=== PATIENT | female | born 1950 | race Caucasian/White ===

== ENCOUNTER 2017-07-11 18:25 | Inpatient (IN) ==
[2017-07-11 18:31] VITALS: BMI 31.1
--- OUTSIDE RECORDS SUMMARY | 2017-07-11 18:32 | External Medical Summary | CCD ---
:1950 Author Name JACKIE RANGEL Address [address] [place] [phone] Care Team Providers Name Role Phone NGUYỄN FERRELL Attending Physician Unavailable Vital Signs Unknown or Not Available. Allergies Allergy Code Allergy Type Reaction Status No Known Drug 0 No known drug Active Allergies allergies Procedures Unknown or Not Available. History of Immunizations Unknown or Not Available. Problems Unknown or Not Available. Results HGB A1C - Collect Date/Time: 11/22/2014 11:50 Test Name Code Test Result Test Units Test Ref Range HGB A1C 7.4 % L=4.5 H=6.2 eAG 166 mg/dL THYROXINE (T4) FREE - Collect Date/Time: 11/22/2014 11:50 Test Name Code Test Result Test Units Test Ref Range FT4 1.22 ng/dL L=0.76 H=1.46 TSH - Collect Date/Time: 11/22/2014 11:50 Test Name Code Test Result Test Units Test Ref Range TSH 5.22 uIU/mL L=0.36 H=3.74 MICROALBUMIN/CREATININE RATIO - Collect Date/Time: 11/22/2014 16:55 Test Name Code Test Result Test Units Test Ref Range MICROALBUMIN 1.7 mg/dL L=0.1 H=2.0 CREAT, URINE 195.2 mg/dL MICROALB/CREAT 8.7 ug/mg L=0.0 H=29.9 Active Medications Unknown or Not Available. Medications Administered During Visit Unknown or Not Available. Encounters Encounter Diagnosis Diagnosis Code Start Date DIABETES W O COMP TYPE 2 72111 11/22/2014 UNSPECIFIE Social History Smoking Status Code Start Date End Date Never smoker [id number] Patient Decision Aids Unknown or Not Available. Discharge Instructions You were admitted to [facility] on 08/2015 with a principal diagnosis of DIABETES W O COMP TYPE 2 UNSPECIFIE. You were discharged from [facility] on 11/22/2014. Should you have any questions prior to discharge, please contact a member of your healthcare team. If you have left the hospital and have any questions, please contact your primary care physician. Chief Complaint and Reason For Visit Unknown or Not Available. Function Status Unknown or Not Available. Plan of Care Unknown or Not Available. Referral/Transition of Care Unknown or Not Available.
--- OUTSIDE RECORDS SUMMARY | 2017-07-11 18:32 | External Medical Summary | Continuity of Care Document ---
:[address] [facility] Allergies Medications Problems Date Dx Attending Type Code Diagnosis Diagnosed By Coded 03/07/2013 Irvin Drake MD 250.40 DIAB W RENAL MANIFEST, TYPE II OR UNSPEC TYPE, NOT 03/07/2013 Irvin Drake MD 272.4 HYPERLIPIDEMIA NEC/NOS 03/07/2013 Irvin Drake MD 403.90 HYPTNSV CHR KID DIS, UNSPEC, W CHR KD STAGE I-IV O 03/07/2013 Irvin Drake MD 414.00 CORON ATHEROSCLER NOS TYPE VESSEL, SNOQUALMIE OR GRAFT 03/07/2013 Irvin Drake MD 427.89 CARDIAC DYSRHYTHMIAS NEC 03/07/2013 Irvin Drake MD 458.9 HYPOTENSION NOS 03/07/2013 Irvin Drake MD 584.9 ACUTE RENAL FAILURE, UNSPECIFIED 03/07/2013 Irvin Drake MD 585.9 CHRONIC KIDNEY DISEASE, UNSPECIFIED 03/07/2013 Irvin Drkae MD 780.4 DIZZINESS AND GIDDINESS 03/07/2013 Irvin Drake MD V45.81 AORTOCORONARY BYPASS Procedures Encounters ACCT No. Visit Discharge Status Pt. Type Provider Facility Loc./Unit Complaint Date/Time [id number] 03/07/2013 03/09/2013 DIS Inpatient Kishore Drake [id number] 21:00:00 14:50:00 [facility] [id number] 01/15/2016 ACT Unknown [id number] 11:10:00 [id number] 12/12/2014 ACT Unknown [id number] 10:33:00 [id number] 04/02/2014 ACT Unknown [id number] 09:10:00
--- OUTSIDE RECORDS SUMMARY | 2017-07-11 18:32 | External Medical Summary | CCD ---
:1950 Author Name DARIELA SEYMOUR Address [address] [place] [phone] Care Team Providers Name Role Phone YAN RETANA Attending Physician Unavailable Vital Signs Unknown or Not Available. Allergies Allergy Code Allergy Type Reaction Status No Known Drug 0 No known drug Active Allergies allergies Procedures Unknown or Not Available. History of Immunizations Unknown or Not Available. Problems Unknown or Not Available. Results COMP METABOLIC - Collect Date/Time: 12/23/2015 08:34 Test Name Code Test Result Test Units Test Ref Range GLUCOSE 114 mg/dL L=70 H=110 BUN 26 mg/dL L=7 H=18 CREATININE 0.97 mg/dL L=0.60 H=1.30 AGE 65 YEARS GFR 57.5 SODIUM 143 mmol/L L=136 H=145 POTASSIUM 3.9 mmol/L L=3.5 H=5.1 CHLORIDE 104 mmol/L L=98 H=107 CO2 32 mmol/L L=21 H=32 CALCIUM 9.2 mg/dL L=8.5 H=10.1 AST 20 U/L L=15 H=37 ALT 25 U/L L=12 H=78 ALKALINE PHOS 80 U/L L=50 H=136 TOTAL PROTEIN 7.5 g/dL L=6.4 H=8.2 ALBUMIN 3.8 g/dL L=3.4 H=5.0 TOTAL BILI 0.60 mg/dL L=0.00 H=1.00 HGB A1C - Collect Date/Time: 12/23/2015 08:34 Test Name Code Test Result Test Units Test Ref Range HGB A1C 7.4 % L=4.5 H=6.2 eAG 166 mg/dL LIPID PANEL - Collect Date/Time: 12/23/2015 08:34 Test Name Code Test Result Test Units Test Ref Range CHOLESTEROL 202 mg/dL L=0 H=200 TRIGLYCERIDES 197 mg/dL L=30 H=150 HDL 43 mg/dL L=50 H=60 LDL, CALC 120 mg/dL L=0 H=100 VLDL 39 mg/dL L=0 H=40 CHOL/HDL RISK 4.7 RATIO L=0.0 H=4.4 PT FASTING: YES N/A THYROXINE (T4) FREE - Collect Date/Time: 12/23/2015 08:34 Test Name Code Test Result Test Units Test Ref Range FT4 1.52 ng/dL L=0.76 H=1.46 TSH - Collect Date/Time: 12/23/2015 08:34 Test Name Code Test Result Test Units Test Ref Range TSH 0.51 uIU/mL L=0.36 H=3.74 MICROALBUMIN/CREATININE RATIO - Collect Date/Time: 12/24/2015 11:00 Test Name Code Test Result Test Units Test Ref Range MICROALBUMIN 0.7 mg/dL L=0.1 H=2.0 CREAT, URINE 34.5 mg/dL MICROALB/CREAT 20.3 ug/mg L=0.0 H=29.9 Active Medications Unknown or Not Available. Medications Administered During Visit Unknown or Not Available. Encounters Encounter Diagnosis Diagnosis Code Start Date Type 2 diabetes mellitus without E119 12/23/2015 complications Social History Smoking Status Code Start Date End Date Never smoker [id number] Patient Decision Aids Unknown or Not Available. Discharge Instructions You were admitted to [facility] on 12/23/2015 08:20 with a principal diagnosis of Type 2 diabetes mellitus without complications You had the following tests done: COMP METABOLIC HGB A1C LIPID PANEL MICROALBUMIN/CREATININE RATIO THYROXINE (T4) FREE TSH You were discharged from [facility] on 12/23/2015 08:20 Should you have any questions prior to discharge, please contact a member of your healthcare team. If you have left the hospital and have any questions, please contact your primary care physician. Chief Complaint and Reason For Visit Chief Complaint Date of Onset LAB Function Status Unknown or Not Available. Plan of Care Unknown or Not Available. Referral/Transition of Care Unknown or Not Available.
--- NOTE | 2017-07-11 19:06 | History & Physical Report ---
History of Present Illness Date: 07/11/17 Chief complaint: hip fracture HPI: Yodit is a 67-year-old woman with CAD, DM who fell trying to catch a puppy in a parking lot. She could not get up, but with help she was driven home. She sought medical attention in [place]. Dr. Mirza notified Dr. Carmichael of the hip fracture, and then contacted me to arrange transfer to [facility]. Patient says pain is controlled. Nurse reports patient having some nausea on arrival Review of Systems All systems PM: 10-point ROS was reviewed, no additional remarkable complaints except PFSH Patient Stated Medical History Cerebrovascular Accident Yes Paralysis No Seizures No Syncope No Cataracts Yes Coronary Artery Disease Yes Hypertension Yes Other Cardiology Yes: CABGx4 2009 Asthma No Bronchitis No Chronic Obstructive Pulmonary No Disease (COPD) Pneumonia No Pulmonary Edema No Pulmonary Embolism No Sleep Apnea No Tuberculosis No Other Respiratory No Diabetes Mellitus Type 1 Yes Cirrhosis No Gastroesophageal Reflux No Disease Gastrointestinal Bleeding No Hepatitis No Hiatal Hernia No Obstructive Bowel No Ulcer No Other GI No Osteoarthritis No Other Musculoskeletal No Shingles Yes Anesthesia Reactions Yes Depression No Clinic Medical History (Last Reviewed 06/10/17 @ 08:29 by GEORGINA Loving) Cataract (Acute Medical) Diabetes (Acute Medical) High blood pressure (Acute Medical) High cholesterol (Acute Medical) Surgical History: C SECTIONS X 3, GALLBLADDER 2009 , QUAD BYPASS HEART SURGERY 2009,. LT SHOULDER ARTHROSCOPIC DEBRIDEMENT SUPERIOR LABRUM & LONG HEAD BICEPS TENDON STUMP, DEBRIDEMENT SUBSCAPULARIS, SUBACROMIAL BURSECTOMY WITH SAD 05-04-17 Family History: Family History (Last Reviewed 06/10/17 @ 08:29 by GEORGINA Loving) Mother Dementia High blood pressure High cholesterol Brother High cholesterol High blood pressure Lung cancer Father Heart attack Maternal Grandmother Diabetes - Social History Smoking status: Never smoker Medications Home Medications Medication Instructions Recorded Confirmed Type Crestor (rosuvastatin) 40 mg tablet 40 mg PO DAILY 30 Days tab 03/25/17 History Levemir FlexTouch (insulin 35 units SQ DAILY 72 Days #45 03/25/17 04/14/17 History detemir) 100 unit/mL (3 mL) PEN Plavix (clopidogrel) 75 mg tablet 75 mg PO DAILY 30 Days tab 03/25/17 04/13/17 History hydrochlorothiazide 25 mg tablet 25 mg PO DAILY 90 Days tab 03/25/17 04/14/17 History levothyroxine 150 mcg tablet 150 mcg PO DAILY 30 Days tab 03/25/17 04/14/17 History lisinopril 10 mg tablet 10 mg PO DAILY 90 Days tab 03/25/17 04/14/17 History Lasix (Furosemide) 20 mg tablet 20 mg PO QAM 04/08/17 04/14/17 History Norvasc (amlodipine) 5 mg tablet 5 mg PO DAILY 30 Days tab 04/08/17 04/14/17 History aspirin 81 mg tablet,delayed 324 mg PO Q6H 04/08/17 04/13/17 History release Insulin Lispro [Humalog] 4 unit SQ AM 04/13/17 04/14/17 History Insulin Lispro [Humalog] 4 units SQ NOON 04/13/17 04/14/17 History Insulin Lispro [Humalog] 8 unit SQ PM 04/13/17 04/14/17 History Metoprolol Succinate 25 mg PO DAILY 04/13/17 04/14/17 History Allergies Allergy/AdvReac Type Severity Reaction Status Date / Time No Known Allergies Allergy Verified 07/11/17 18:46 Exam Vital Signs: Temperature 97.4 F 07/11/17 18:44 Pulse Rate 71 07/11/17 18:44 Respiratory Rate 18 07/11/17 18:44 Blood Pressure 147/61 H 07/11/17 18:44 Pulse Oximetry 99 07/11/17 18:44 Height/Weight/BMI: Height 5 ft 7 in Weight 90.1 kg Body Mass Index 31.1 - Constitutional Present: well nourished, well developed - Routine HEENT Exam Eye: Present: EOMI ENT: Present: mucous membranes moist, dentition normal - Routine Neck Exam Present: supple. Absent: JVD - Routine Respiratory Exam Present: CTA bilaterally. Absent: wheezes - Routine Cardiovascular Exam Present: RRR. Absent: murmur - Routine Abdominal Exam Present: soft, normoactive bowel sounds, non distended. Absent: tenderness - Routine Extremities Exam Present: normal capillary refill - Routine Skin Exam Present: dry, warm - Routine Neurological Exam Present: alert, oriented X3, CN II-XII intact - Routine Psychiatric Exam Present: normal affect Assessment and Plan (1) Hip fracture, intertrochanteric Current visit: Yes Status: Acute Assessment and Plan: left hip fracture CAD s/p CABG DM2 HTN hypothyroid Plan Admit as inpatient. Dr. Carmichael has been consulted. Will hold Plavix. Lovenox for DVT prophylaxis. Dilaudid and Virgil available for pain. Patient walks 45 minutes every other day. She denies any chest pain or cardiac issues since CABG in 2009. Obtain baseline ECG. Will continue her home antihypertensives - metoprolol and amlodipine. Will continue her insulin regimen and monitor accuchecks. Will start diabetic diet. Resume levothyroxine. Zofran will be available for any nausea. Hospital Course Summary Disclaimer: The visit summary below is not to be considered part of the above Progress Note. Hospital Course: 07/11/17 19:20 left hip fracture CAD s/p CABG DM2 HTN hypothyroid Plan Admit as inpatient. Dr. Carmichael has been consulted. Will hold Plavix. Lovenox for DVT prophylaxis. Dilaudid and Virgil available for pain. Patient walks 45 minutes every other day. She denies any chest pain or cardiac issues since CABG in 2009. Obtain baseline ECG. Will continue her home antihypertensives - metoprolol and amlodipine. Will continue her insulin regimen and monitor accuchecks. Will start diabetic diet. Resume levothyroxine. Zofran will be available for any nausea
[2017-07-11] MEDS ORDERED: GLUCOSE ORAL GEL 40% 37.5gm PO PRN (20:19)
[2017-07-11] MEDS ORDERED: DEXTROSE 50% SYRINGE 50ml (1 AMP) IVP PRN (20:19)
[2017-07-11] MEDS ORDERED: LEVOTHYROXINE 150 MCG TABLET PO SCH (20:30)
[2017-07-11] MEDS: HYDROMORPHONE 2 MG/ML INJECTION IVP PRN (20:37)
[2017-07-11] MEDS: METOCLOPRAMIDE 10mg/2ml INJECTION IVP PRN (20:38)
[2017-07-11] MEDS: ENOXAPARIN 30 MG/0.3 ML INJECTION SQ SCH (21:21)
[2017-07-11] MEDS: INSULIN ASPART 100unit/ml INJECTION SQ PRN (22:32)
[2017-07-12] MEDS: HYDROCODONE/APAP 5mg/325mg TABLET PO PRN (00:51)
[2017-07-12] MEDS: HYDROMORPHONE 2 MG/ML INJECTION IVP PRN ×3 (06:13→18:07)
[2017-07-12] MEDS: ONDANSETRON 4 MG/2 ML INJECTION IVP PRN ×2 (06:16→13:38)
[2017-07-12] MEDS: INSULIN ASPART 100unit/ml INJECTION SQ PRN (06:32)
[2017-07-12] MEDS ORDERED: LEVOTHYROXINE 150 MCG TABLET PO SCH (09:00)
[2017-07-12] MEDS ORDERED: INSULIN DETEMIR 100unit/ml INJECTION SQ SCH (09:00)
--- NOTE | 2017-07-12 09:20 | Progress Note ---
- Date 07/12/17 Subjective: Patient says her pain is mostly controlled even after getting an x-ray. c/o nausea more than pain when she moves. Not much appetite. Objective Vital signs: Temperature 97.2 F 07/12/17 08:24 Pulse Rate 72 07/12/17 08:24 Respiratory Rate 18 07/12/17 08:24 Blood Pressure 125/53 07/12/17 08:24 Pulse Oximetry 99 07/12/17 08:24 Height/Weight/BMI: Height 5 ft 7 in Weight 90.3 kg Body Mass Index 31.1 - Constitutional Present: well nourished, well developed - Routine HEENT Exam Eye: Present: EOMI ENT: Present: mucous membranes moist, dentition normal - Routine Respiratory Exam Present: CTA bilaterally. Absent: wheezes - Routine Cardiovascular Exam Present: RRR. Absent: murmur - Routine Abdominal Exam Present: soft, normoactive bowel sounds, non distended. Absent: tenderness - Routine Extremities Exam Present: normal capillary refill. Absent: edema - Routine Skin Exam Present: dry, warm - Routine Neurological Exam Present: alert, oriented X3, CN II-XII intact - Routine Psychiatric Exam Present: normal affect Results - Labs CBC & Chem 7: 07/12/17 04:30 07/12/17 04:30 Microbiology Results: Microbiology 07/11/17 21:24 Urine, Cath Mccall Urine Culture - Preliminary Culture Initiated - Results Pending Assessment and Plan (1) Hip fracture, intertrochanteric Current visit: Yes Status: Acute Assessment and Plan: left femoral neck fracture CAD s/p CABG DM2 HTN hypothyroid nausea bacteruria Plan Anti-emetics available prn. Continue amlodipine and metoprolol xl. Sliding scale for now. Restart meal-time Humalog and Levemir. X-rays showing left femoral neck fx instead of intratrochanteric. d/w Dr. Carmichael. Surgery will be tomorrow. Plavix on hold. Patient has abnormal UA but is asymptomatic. Will have Mccall changed and recheck UA. Continue levothyroxine. Hospital Course Summary Disclaimer: The visit summary below is not to be considered part of the above Progress Note. Hospital Course: 07/11/17 19:20 left hip fracture CAD s/p CABG DM2 HTN hypothyroid Plan Admit as inpatient. Dr. Carmichael has been consulted. Will hold Plavix. Lovenox for DVT prophylaxis. Dilaudid and Nekoma available for pain. Patient walks 45 minutes every other day. She denies any chest pain or cardiac issues since CABG in 2009. Obtain baseline ECG. Will continue her home antihypertensives - metoprolol and amlodipine. Will continue her insulin regimen and monitor accuchecks. Will start diabetic diet. Resume levothyroxine. Zofran will be available for any nausea 07/12/17 10:00 left femoral neck fracture CAD s/p CABG DM2 HTN hypothyroid nausea bacteruria Plan Anti-emetics available prn. Continue amlodipine and metoprolol xl. Sliding scale for now. Restart meal-time Humalog and Levemir. X-rays showing left femoral neck fx instead of intratrochanteric. d/w Dr. Carmichael. Surgery will be tomorrow. Plavix on hold. Patient has abnormal UA but is asymptomatic. Will have Mccall changed and recheck UA. Continue levothyroxine.
--- NOTE | 2017-07-12 09:51 | XRay Report ---
Indication: doctor ordered PROCEDURE: XR hip LT min 2V: Encounter: Initial Comparison: None. Findings: There is a minimally displaced subcapital fracture with shortening and external rotation. No definite pelvic fracture and the [id number]. There are moderate vascular calcifications. Impression: Subcapital femoral neck fracture with shortening and rotation. .
[2017-07-12] MEDS: METOCLOPRAMIDE 10mg/2ml INJECTION IVP PRN ×2 (10:41→18:08)
[2017-07-12] MEDS: SALINE FLUSH 10ml SYRINGE IV PRN ×3 (10:42→18:12)
--- NOTE | 2017-07-12 12:07 | XRay Report ---
Indication: left hip fracture PROCEDURE: XR hip LT min 2V: Encounter: Initial Comparison: None. Findings: There is a left femoral neck fracture with some shortening and external rotation. No dislocation. No definite effusion. The hip joints appear fairly symmetric. There are fairly extensive vascular calcifications. There is moderate bilateral sacroiliitis. The right hip is unremarkable. No soft tissue mass. Impression: Left femoral neck fracture. .
[2017-07-12] MEDS: INSULIN ASPART 100unit/ml INJECTION SQ SCH ×3 (12:20→18:34)
[2017-07-12] MEDS: FUROSEMIDE 20 MG TABLET PO SCH (12:24)
[2017-07-12] MEDS: AMLODIPINE 5 MG TABLET PO SCH (12:24)
[2017-07-12] MEDS: ENOXAPARIN 30 MG/0.3 ML INJECTION SQ SCH ×2 (12:27→21:23)
--- NOTE | 2017-07-12 13:59 | Orthopedic Consult Note ---
Orthopedic Consultation HPI - Consultation Info Consult Date: 07/12/17 Attending Physician: Danial Carmichael MD Consult Reason: fracture - History of Present Illness Mrs. Zaman is a pleasent 67 year old female who is admitted under the hospitalist service for chief complaint of left hip fracture. On 07/11/17 she was trying to keep a puppy from running into traffic in a parking lot. She stuck out her left leg, lost her balance and fell on her left side. She had immediate pain and trouble bearing weight. She was able to be driven to [place] where she was evaluated by Dr Mirza. X-rays revealed a left femoral neck fracture. She was made a direct admit to the hospital service with Dr. Carmichael consulting for definitive surgical management. She locates her pain in the lateral left hip and left groin. Her pain is worse with ROM or weight bearing; it is better with narcotics and Durbin's traction. She denies hitting her head with the fall, any pre fall dizziness or light headedness, or syncope. She has not had surgery on this hip in the past. She takes Plavix secondary to be S/P CABG. Surgery is planned for 07/13/17 in the afternoon and will be a hemiarthroplasty. Dr. Carmichael will allow a clear liquids for breakfast on . Risks and benefits of the recommended procedure were discussed with the patient and/or patient's legal senior human resources representative. They include: infection, nerve damage, artery damage, stroke, WI, PE, DVT, ileus, continued pain, or risk that the injury may not heal despite surgery. There are also medical risks of anesthesia. Risks are not limited to the above mentioned alone. Review of Systems - Constitutional Constitutional: Absent: chills, fatigue, headache(s) - EENT Eyes: Absent: blurry vision, pain Ears, nose, mouth, throat: Absent: vertigo, head injury - Cardiovascular Cardiovascular: Absent: chest pain Vascular: Absent: pedal edema - Respiratory Respiratory: Absent: wheezing - Gastrointestinal Gastrointestinal: Absent: abdominal pain, diarrhea - Genitourinary Genitourinary General: Absent: chills - Musculoskeletal Musculoskeletal: Present: as per HPI, back pain. Absent: deformity - Integumentary/Breasts Integumentary: Present: swelling - Neurological Neurological: Absent: confusion, dizziness, headache(s) - Endocrine Endocrine: Absent: cold intolerance - Hematologic/Lymphatic Hematologic/Lymphatic: Present: easy bleeding (On Plavix) [facility] Patient Stated Medical History Cerebrovascular Accident Yes Paralysis No Seizures No Syncope No Cataracts Yes Coronary Artery Disease Yes Hypertension Yes Other Cardiology Yes: CABGx4 2009 Asthma No Bronchitis No Chronic Obstructive Pulmonary No Disease (COPD) Pneumonia No Pulmonary Edema No Pulmonary Embolism No Sleep Apnea No Tuberculosis No Other Respiratory No Diabetes Mellitus Type 1 Yes Cirrhosis No Gastroesophageal Reflux No Disease Gastrointestinal Bleeding No Hepatitis No Hiatal Hernia No Obstructive Bowel No Ulcer No Other GI No Osteoarthritis No Other Musculoskeletal No Shingles Yes Anesthesia Reactions Yes Depression No Clinic Medical History (Last Reviewed 06/10/17 @ 08:29 by Dexter Feldman RMIrene) Cataract (Acute Medical) Diabetes (Acute Medical) High blood pressure (Acute Medical) High cholesterol (Acute Medical) Surgical History: C SECTIONS X 3, GALLBLADDER 2009 , QUAD BYPASS HEART SURGERY 2009,. 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?) Medications Home Medications Medication Instructions Recorded Confirmed Type Crestor (rosuvastatin) 40 mg tablet 40 mg PO DAILY 30 Days tab 03/25/17 History Levemir FlexTouch (insulin 35 units SQ DAILY 72 Days #45 03/25/17 07/11/17 History detemir) 100 unit/mL (3 mL) PEN Plavix (clopidogrel) 75 mg tablet 75 mg PO DAILY 30 Days tab 03/25/17 07/12/17 History hydrochlorothiazide 25 mg tablet 25 mg PO DAILY 90 Days tab 03/25/17 07/12/17 History levothyroxine 150 mcg tablet 150 mcg PO DAILY 30 Days tab 03/25/17 07/12/17 History lisinopril 10 mg tablet 10 mg PO DAILY 90 Days tab 03/25/17 07/12/17 History Lasix (Furosemide) 20 mg tablet 20 mg PO QAM 04/08/17 07/12/17 History Norvasc (amlodipine) 5 mg tablet 5 mg PO DAILY 30 Days tab 04/08/17 07/12/17 History aspirin 81 mg tablet,delayed 81 mg PO Q6H 04/08/17 07/11/17 History release Insulin Lispro [Humalog] 4 unit SQ AM 04/13/17 07/11/17 History Insulin Lispro [Humalog] 4 units SQ NOON 04/13/17 07/11/17 History Insulin Lispro [Humalog] 8 unit SQ PM 04/13/17 07/11/17 History Metoprolol Succinate 25 mg PO DAILY 04/13/17 07/12/17 History Allergies Allergy/AdvReac Type Severity Reaction Status Date / Time No Known Allergies Allergy Verified 07/11/17 18:46 Orthopedic Exam Vital signs: Temperature 97.0 F 07/12/17 12:20 Pulse Rate 75 07/12/17 12:20 Respiratory Rate 18 07/12/17 12:20 Blood Pressure 116/46 07/12/17 12:20 Pulse Oximetry 100 07/12/17 12:20 - Constitutional General Appearance: Present: alert, orientated x3, no acute distress - Respiratory Exam Present: non-labored - Cardiovascular Exam Present: pedal pulses intact Capillary Refill: < 2-3 Seconds - Abdominal Exam Absent: tenderness - Extremities Exam Present: normal capillary refill. Absent: edema - Integumentary Exam Present: pink, warm, dry, intact - Lymphatic Lymphatic: Absent: lymphedema - Neurological Exam Present: intact to light touch, no deficits - Psychiatric Exam Present: normal affect - Labs Result Diagrams: 07/12/17 04:30 07/12/17 04:30 Abnormal lab results 07/11/17 07/12/17 07/12/17 Range/Units 21:24 04:30 04:30 RBC 3.71 L (4.00-5.20) M/MM3 Hgb 11.4 L (12-16) GM/DL Hct 34.4 L (36-46) % BUN 48.0 H (7-17) MG/DL BUN/Creatinine Ratio 53 H (6-26) RATIO Glucose 197 H (65-110) MG/DL Calculated Osmolality 289 H (261-280) MOSM/KG Ur Specific [place] 1.010 L (1.015-1.025) Urine Nitrate Positive A (NEGATIVE) Urine WBC 10-20 H (0-5) /HPF Urine Bacteria 4+ H (NEGATIVE) H & H 07/12/17 Range/Units 04:30 Hgb 11.4 L (12-16) GM/DL Hct 34.4 L (36-46) % Coagulation 07/11/17 Range/Units 18:45 INR 1.07 (0.99-1.21) - Diagnostic results Hip x-ray: image reviewed (Left femoral neck fracture) Impression and Recommendation (1) Left displaced femoral neck fracture Current visit: Yes Status: Acute Dr. Carmichael is recommending a left hip hemiarthroplasty on 07/13/[address] Carmichael said clear liquids for breakfast 07/13/17 would be okay. Risks and benefits of the recommended procedure were discussed with the patient and/or patient's legal senior human resources representative. They include: infection, nerve damage, artery damage, stroke, WI, PE, DVT, ileus, continued pain, or risk that the injury may not heal despite surgery. There are also medical risks of anesthesia. Risks are not limited to the above mentioned alone. Hospital Course Summary Disclaimer: The visit summary below is not to be considered part of the above Progress Note. Hospital Course: 07/11/17 19:20 left hip fracture CAD s/p CABG DM2 HTN hypothyroid Plan Admit as inpatient. Dr. Carmichael has been consulted. Will hold Plavix. Lovenox for DVT prophylaxis. Dilaudid and [place] available for pain. Patient walks 45 minutes every other day. She denies any chest pain or cardiac issues since CABG in 2009. Obtain baseline ECG. Will continue her home antihypertensives - metoprolol and amlodipine. Will continue her insulin regimen and monitor accuchecks. Will start diabetic diet. Resume levothyroxine. Zofran will be available for any nausea 07/12/17 10:00 left femoral neck fracture CAD s/p CABG DM2 HTN hypothyroid nausea bacteruria Plan Anti-emetics available prn. Continue amlodipine and metoprolol xl. Sliding scale for now. Restart meal-time Humalog and Levemir. X-rays showing left femoral neck fx instead of intratrochanteric. d/w Dr. Carmichael. Surgery will be tomorrow. Plavix on hold. Patient has abnormal UA but is asymptomatic. Will have Mccall changed and recheck UA. Continue levothyroxine.
[2017-07-12] MEDS ORDERED: DEXAMETHASONE 4 MG/ML INJECTION IVP ONE (14:29)
[2017-07-12] MEDS ORDERED: TRANEXAMIC ACID 1,000 MG in NS 100 ML TOP ONE (14:29)
[2017-07-12] MEDS ORDERED: NOZIN NASAL SWAB NAS ONE (14:29)
[2017-07-12] MEDS: ROSUVASTATIN 20 MG TABLET PO SCH (21:46)
[2017-07-12] MEDS: INSULIN DETEMIR 100unit/ml INJECTION SQ SCH (21:50)
[2017-07-13] MEDS: HYDROMORPHONE 2 MG/ML INJECTION IVP PRN ×2 (00:53→05:21)
[2017-07-13] MEDS: ONDANSETRON 4 MG/2 ML INJECTION IVP PRN ×2 (00:54→10:42)
[2017-07-13] MEDS: METOCLOPRAMIDE 10mg/2ml INJECTION IVP PRN (05:26)
[2017-07-13] MEDS: LEVOTHYROXINE 150 MCG TABLET PO SCH (06:25)
[2017-07-13] MEDS: ASPIRIN *EC* 81 MG TABLET PO SCH (10:23)
[2017-07-13] MEDS: ENOXAPARIN 30 MG/0.3 ML INJECTION SQ SCH ×2 (10:23→21:20)
[2017-07-13] MEDS: INSULIN ASPART 100unit/ml INJECTION SQ SCH ×3 (10:24→19:37)
[2017-07-13] MEDS: FUROSEMIDE 20 MG TABLET PO SCH (10:24)
[2017-07-13] MEDS: AMLODIPINE 5 MG TABLET PO SCH (10:32)
[2017-07-13] MEDS ORDERED: CEFAZOLIN 1 G INJECTION IVP ONE (10:39)
[2017-07-13] MEDS: SALINE FLUSH 10ml SYRINGE IV PRN (10:46)
--- NOTE | 2017-07-13 10:56 | Progress Note ---
<LouiseMary D - Last Filed: 07/13/17 10:52> - Date 07/13/17 Subjective: Yodit is doing fairly well; anxious to have surgery done with so she can start the recovery process. She and her Gus have questions about discharge planning ie will she be able to go home, will she need a walker, etc. We briefly discussed the expectations of needing PT and a walker but where she goes at time of dc (home with vs [facility] will depend upon how well she does with PT postop. She denies any leg/hip spasms; pain's been reasonable. No SOA or chest pain. Objective Vital signs: Temperature 99.8 F 07/13/17 04:31 Pulse Rate 83 07/13/17 01:03 Respiratory Rate 18 07/13/17 01:03 Blood Pressure 133/56 07/13/17 01:03 Pulse Oximetry 93 07/13/17 01:03 Height/Weight/BMI: Height 1.7 m Weight 90.3 kg Body Mass Index 31.1 - Constitutional Present: no acute distress, well nourished, well developed - Routine HEENT Exam Eye: Absent: conjunctival icterus ENT: Present: oropharynx clear - Routine Respiratory Exam Present: CTA bilaterally - Routine Cardiovascular Exam Present: RRR, S1, S2 - Routine Abdominal Exam Present: soft, normoactive bowel sounds, non tender - Routine Extremities Exam Present: no edema - Routine Skin Exam Present: intact, dry, warm - Routine Neurological Exam Present: alert, oriented X3, normal speech - Routine Psychiatric Exam Present: normal affect, normal thought process, cooperative Results - Labs CBC & Chem 7: 07/13/17 03:56 07/13/17 03:56 Microbiology Results: Microbiology 07/11/17 21:24 Urine, Cath Mccall Urine Culture - Final Escherichia coli Assessment and Plan (1) Hip fracture, intertrochanteric Current visit: Yes Status: Acute Assessment and Plan: IMPRESSION left femoral neck fracture E. coli UTI - POA Mild normocytic anemia - POA CAD s/p CABG DM2 HTN hypothyroid nausea PLAN Give morning meds except insulin, asa, Lovenox, and Lasix. start bowel regimen. Keflex for E. coli UTI. BG under fairly decent control; had >200 reading after lunch yesterday but since then have all been <180. Monitor h&h postop. will ask CM to review dc options with her. DVT Prophylaxis: Lovenox Resuscitation Status: Full Code Hospital Course Summary Disclaimer: The visit summary below is not to be considered part of the above Progress Note. Hospital Course: 07/11/17 left hip fracture CAD s/p CABG DM2 HTN hypothyroid Plan Admit as inpatient. Dr. Carmichael has been consulted. Will hold Plavix. Lovenox for DVT prophylaxis. Dilaudid and [place] available for pain. Patient walks 45 minutes every other day. She denies any chest pain or cardiac issues since CABG in 2009. Obtain baseline ECG. Will continue her home antihypertensives - metoprolol and amlodipine. Will continue her insulin regimen and monitor accuchecks. Will start diabetic diet. Resume levothyroxine. Zofran will be available for any nausea 07/12/17 Anti-emetics available prn. Continue amlodipine and metoprolol xl. Sliding scale for now. Restart meal-time Humalog and Levemir. X-rays showing left femoral neck fx instead of intratrochanteric. d/w Dr. Carmichael. Surgery will be tomorrow. Plavix on hold. Patient has abnormal UA but is asymptomatic. Will have Mccall changed and recheck UA. Continue levothyroxine. 07/13/17 left femoral neck fracture E. coli UTI - POA Mild normocytic anemia - POA CAD s/p CABG DM2 HTN hypothyroid nausea Give morning meds except insulin, asa, Lovenox, and Lasix. start bowel regimen. Keflex for E. coli UTI. BG under fairly decent control; had >200 reading after lunch yesterday but since then have all been <180. <Jose Juan Davis D - Last Filed: 07/13/17 17:05> - Date 07/13/17 Objective Vital signs: Temperature 97.8 F 07/13/17 15:51 Pulse Rate 68 07/13/17 15:50 Respiratory Rate 13 07/13/17 15:50 Blood Pressure 133/63 07/13/17 15:50 Pulse Oximetry 93 07/13/17 15:50 Height/Weight/BMI: Height 1.7 m Weight 90.3 kg Body Mass Index 31.1 Results - Labs CBC & Chem 7: 07/13/17 03:56 07/13/17 03:56 Microbiology Results: Microbiology 07/11/17 21:24 Urine, Cath Mccall Urine Culture - Final Escherichia coli Assessment and Plan (1) Hip fracture, intertrochanteric Current visit: Yes Status: Acute Assessment and Plan: IMPRESSION Left femoral neck fracture E. coli UTI - POA Mild normocytic anemia - POA CAD s/p CABG DM2 HTN Hypothyroidism Nausea Obesity with BMI 31.2 Have independently interviewed and examined pt. Chart reviewed. Case discussed with my GAS TESTER. Care plan developed with my supervision; agree with above. Doing okay post op. Feels tired and groggy, but not having pain. No nausea or ab pain. Feels breathing well. Lungs: clear CV: regular AB: soft nt/nd BS decreased MSE: awake but groggy-converses well Plan: Continue supportive post op care. PT/OT to help increase functional status. Restart Lovenox this evening. IS for pulmonary toilet-wean O2 as able. Metabolic Bone consult secondary to fracture - will check Vit D level and CMP. Monitor blood counts. Control pain. Continue cephalexin for urinary coverage. Hospital Course Summary Disclaimer: The visit summary below is not to be considered part of the above Progress Note.
[2017-07-13] MEDS: LR 1,000 ML IV SCH ×2 (11:15→14:27)
--- NOTE | 2017-07-13 12:24 | Anesthesia Preoperative Report ---
Anesthesia Preoperative Record - Date and Time Date: 07/13/17 Preoperative Diagnosis: L Hip Fx Proposed Procedure: Left hip hemiarthroplasty NPO Since Date: 07/13/17 NPO Since Time: 09:00 Allergies/Adverse Reactions: Allergies Allergy/AdvReac Type Severity Reaction Status Date / Time No Known Allergies Allergy Verified 07/11/17 18:46 - Vital Signs Vital Signs: Temperature 99.0 F 07/13/17 11:08 Pulse Rate 69 07/13/17 11:58 Respiratory Rate 11 07/13/17 11:08 Blood Pressure 127/58 07/13/17 11:08 Pulse Oximetry 98 07/13/17 11:08 Height and Weight: Height 1.7 m Weight 90.3 kg Body Mass Index 31.1 - Medications Inpatient Medications: Current Medications Hydrocodone Bitart/Acetaminophen ([place] 5/325) 1 tab PO Q6H PRN PRN Reason: Pain Last Admin: 07/12/17 00:51 Dose: 1 tab Amlodipine Besylate (Norvasc) 5 mg PO DAILY [facility] Last Admin: 07/13/17 10:32 Dose: 5 mg Aspirin (Ecotrin) 81 mg PO QAM [facility] Last Admin: 07/13/17 10:23 Dose: Not Given Cephalexin HCl (Keflex) 500 mg PO Q12HR [facility] Last Admin: 07/13/17 10:32 Dose: 500 mg Dextrose (D50%W) 25 ml IVP PRN PRN PRN Reason: Hypoglycemia Enoxaparin Sodium (Lovenox) 30 mg SQ BID [facility] Last Admin: 07/13/17 10:23 Dose: Not Given Furosemide (Lasix) 20 mg PO QAM [facility] Last Admin: 07/13/17 10:24 Dose: Not Given Glucose (Glutose 15) 37.5 gm PO PRN PRN PRN Reason: Hypoglycemia Hydromorphone HCl (Dilaudid) 0.5 mg IVP Q3H PRN PRN Reason: Pain Last Admin: 07/13/17 05:21 Dose: 0.5 mg Lactated Ringer's (Lactated Ringers) 1,000 mls @ 50 mls/hr IV .Q20H [facility] Last Admin: 07/13/17 11:15 Dose: 50 mls/hr Insulin Aspart (Novolog) 4 unit SQ AMI [facility] Last Admin: 07/13/17 10:24 Dose: Not Given Insulin Aspart (Novolog) 8 unit SQ PMI [facility] Last Admin: 07/12/17 18:34 Dose: 8 unit Insulin Aspart (Novolog) 4 unit SQ NOON [facility] Last Admin: 07/12/17 13:53 Dose: 4 unit Insulin Aspart (Novolog) 0 unit SQ SS PRN; Protocol PRN Reason: Hyperglycemia Last Admin: 07/12/17 06:32 Dose: 1 unit Insulin Detemir (Levemir) 35 unit SQ HS [facility] Last Admin: 07/12/17 21:50 Dose: 35 unit Levothyroxine Sodium (Synthroid) 150 mcg PO ACB [facility] Last Admin: 07/13/17 06:25 Dose: 150 mcg Magnesium Hydroxide (Mom) 30 ml PO DAILY PRN PRN Reason: Constipation Metoclopramide HCl (Reglan) 5 mg IVP Q6H PRN Last Admin: 07/13/17 05:26 Dose: 5 mg Metoprolol Succinate (Toprol Xl) 25 mg PO DAILY [facility] Last Admin: 07/13/17 10:31 Dose: 25 mg Ondansetron HCl (Zofran) 4 mg IVP Q6H PRN PRN Reason: Nausea &/or vomiting Last Admin: 07/13/17 10:42 Dose: 4 mg Polyethylene Glycol (Miralax) 17 gm PO DAILY [facility] Rosuvastatin Calcium (Crestor) 40 mg PO [facility] Last Admin: 07/12/17 21:46 Dose: 40 mg Senna/Docusate Sodium (Senna Plus Tablet) 1 tab PO BID [facility] Sodium Chloride (Iv Flush) 10 - 80 ml IV PRN PRN PRN Reason: Flushing Last Admin: 07/13/17 10:46 Dose: 40 ml Home Medications: Home Medications Medication Instructions Recorded Confirmed Type Crestor (rosuvastatin) 40 mg tablet 40 mg PO DAILY 30 Days tab 03/25/17 History Levemir FlexTouch (insulin 35 units SQ DAILY 72 Days #45 03/25/17 07/11/17 History detemir) 100 unit/mL (3 mL) PEN Plavix (clopidogrel) 75 mg tablet 75 mg PO DAILY 30 Days tab 03/25/17 07/12/17 History hydrochlorothiazide 25 mg tablet 25 mg PO DAILY 90 Days tab 03/25/17 07/12/17 History levothyroxine 150 mcg tablet 150 mcg PO DAILY 30 Days tab 03/25/17 07/12/17 History lisinopril 10 mg tablet 10 mg PO DAILY 90 Days tab 03/25/17 07/12/17 History Lasix (Furosemide) 20 mg tablet 20 mg PO QAM 04/08/17 07/12/17 History Norvasc (amlodipine) 5 mg tablet 5 mg PO DAILY 30 Days tab 04/08/17 07/12/17 History aspirin 81 mg tablet,delayed 81 mg PO Q6H 04/08/17 07/11/17 History release Insulin Lispro [Humalog] 4 unit SQ AM 04/13/17 07/11/17 History Insulin Lispro [Humalog] 4 units SQ NOON 04/13/17 07/11/17 History Insulin Lispro [Humalog] 8 unit SQ PM 04/13/17 07/11/17 History Metoprolol Succinate 25 mg PO DAILY 04/13/17 07/12/17 History Is Patient on Beta Roxane?: Yes Beta Roxane Last Dose Date/Time: 07/13/17 @1026 - Medical History Cardiovascular: Reports: Coronary Artery Disease, Hypertension, High Cholesterol Renal/Endocrine: Reports: Diabetes Mellitus Type 1, Thyroid Disease - Surgical History HEENT Surgeries: Reports: Eye Surgery (cataract surgery), Oral Surgery (wisdom teeth), Tonsillectomy Cardiac Surgeries/Treatments: Reports: Coronary Artery Bypass Graft GI Surgery/Treatments: Reports: Cholecystectomy (2010), Colonoscopy Musculoskeletal Surgery/Tx: Reports: Carpal Tunnel Release (bilat), Shoulder Arthroscopy (2017) Reproductive Surgery/Treatment: Reports: Section (x3) Anesthesia Reactions: None Hx Family Anesthesia Reaction: No History of Motion Sickness: No - Social History Smoking Status: Never smoker Hx Chewing Tobacco Use: No Second Hand Exposure: No Substance Use Type: does not use Alcohol Intake Frequency: does not drink - Pertinent Findings Laboratory: CBC and BMP 07/13/17 03:56 07/13/17 03:56 BMP 07/13/17 03:56 Sodium 138 Potassium 4.1 Chloride 100 Carbon Dioxide 32 H BUN 44.0 H Creatinine 1.1 D Glucose 138 H Calcium 8.9 EKG: Sinus Rhythm - Physical Exam Respiratory Exam: Present: lungs clear Cardiovascular Exam: Present: regular rate and rhythm - Airway Assessment Mallampati Score: II TMD: 3 Fingerbreadths Neck Extension: fair Overall Assessment: no airway concerns - ASA ASA Score: 3 - Plan Anesthesia: General Inhalation Gases Peripheral Nerve Block: Interscalene Block-Left - Discussion Discussion: Discussed risks/options/alternatives of anesthesia and questions answered. Patient consents. Nursing pain assessment noted. Present for Discussion: spouse Attestation Statement: Prior to the delivery of any anesthetic medication, I examined the patient, developed the plan, obtained the patient's consent and discussed the risk and benefits of the procedure with the patient/guardian.
[2017-07-13] MEDS ORDERED: VANCOMYCIN 1,000 MG INJECTION ONE (12:41)
[2017-07-13] MEDS ORDERED: TOTAL JOINT INJECTION MIXTURE 65.25 ml OPSITE ONE (13:00)
[2017-07-13] MEDS ORDERED: PROPOFOL 20 ML ONE (13:10)
[2017-07-13] MEDS ORDERED: SUCCINYLCHOLINE 20mg/mL 10mL INJECTION ONE (13:10)
[2017-07-13] MEDS ORDERED: ROCURONIUM 50 MG/5 ML INJECTION IVP ONE (13:10)
[2017-07-13] MEDS ORDERED: FentaNYL 100 MCG/2 ML INJECTION ONE ×2 (13:15→13:48)
[2017-07-13] MEDS ORDERED: VANCOMYCIN 1,000 MG INJECTION IAR ONE (14:13)
[2017-07-13] MEDS ORDERED: ONDANSETRON 4 MG/2 ML INJECTION IVP PRN (14:33)
[2017-07-13] MEDS ORDERED: DEXAMETHASONE 4 MG/ML INJECTION ONE (14:33)
[2017-07-13] MEDS ORDERED: ONDANSETRON 4 MG/2 ML INJECTION ONE (14:33)
[2017-07-13] MEDS ORDERED: HYDROMORPHONE 2 MG/ML INJECTION IVP PRN (14:33)
[2017-07-13] MEDS ORDERED: METOCLOPRAMIDE 10mg/2ml INJECTION IVP PRN (14:33)
--- NOTE | 2017-07-13 15:22 | Anesthesia Postoperative Note ---
- Date and Time Date: 07/13/17 Time: 15:21 - Status Patient Participated in Evaluation: Patient Participated in Person Vital Signs: Temperature 99.0 F 07/13/17 11:08 Pulse Rate 69 07/13/17 11:58 Respiratory Rate 11 07/13/17 11:08 Blood Pressure 127/58 07/13/17 11:08 Pulse Oximetry 98 07/13/17 11:08 Respiratory Function: Airway Patent Cardiovascular Function: Regular Pulse EKG: Sinus Rhythm, First Degree AV Block Mental Status: Alert and Oriented Pain Intensity: 0 Hydration: IV Infusing Complications During Recover: None Apparent - Follow-Up Instructions Instructions: Per Surgeon
--- NOTE | 2017-07-13 15:46 | XRay Report ---
Indication: postop x-ray PROCEDURE: XR pelvis w/ 1 view LT hip: Encounter: Initial Comparison: July 12, 2017 Findings: Postoperative changes of left total hip replacement are seen. There is expected postoperative subcutaneous gas. No evidence of hardware failure or acute fracture. No retained radiopaque surgical instruments or sponges seen. Impression: New left total hip prosthesis without evidence of immediate complication. .
[2017-07-13] MEDS ORDERED: HYDROCODONE/APAP 7.5 MG/325 MG TABLET PO PRN (16:07)
[2017-07-13] MEDS: NOZIN NASAL SWAB NAS SCH (16:21)
--- NOTE | 2017-07-13 18:14 | Operative Note ---
DATE OF PROCEDURE 07/13/2017 PREOPERATIVE DIAGNOSIS Left displaced femoral neck fracture. POSTOPERATIVE DIAGNOSIS Left displaced femoral neck fracture. PROCEDURE Left hip hemiarthroplasty. SURGEON Mars Carmichael MD INTERNATIONAL PROJECT ENGINEER Jamie Santana PA-C COMPLICATIONS None. ANESTHESIA General endotracheal tube anesthetic. EBL AND FLUIDS Please see Anesthetic records. DESCRIPTION OF PROCEDURE Mrs. Zaman and her left hip were identified and marked in the preoperative holding area. She was brought back to the operating suite and placed supine on the operating table. She was placed under general anesthesia and intubated. She was then placed in a lateral decubitus position with the left side up. The left lower extremity was prepped and draped in my normal sterile fashion. Time- out was performed. A posterior approach to the hip was utilized. Sharp dissection was carried through the skin and subcutaneous tissue to the muscle fascia which was then split in line with the skin incision. This case was made more difficult by the patient's body habitus. A [place] retractor was placed and the short external rotators were identified. The piriformis was tagged and detached. A capsulotomy was performed. The fracture hematoma was evacuated. Femoral neck osteotomy was performed and the neck fragment removed followed by the head fragment. The head was measured on the back table. We trialed with a 46. This felt good. We then prepared the proximal femur with a cookie cutter followed by broaching to a size 5. We trialed with a 46 standard head. This was close, just a touch short, but good and stable. After thorough irrigation, a final 5 Accolade II stem with 127-degree neck was placed. We then trialed with a +2.5 head. This gave good stability and leg length. After thorough irrigation, a final +2.5, 46 mm head was placed and the hip reduced. The joint was irrigated with Betadine solution. 1 g of TXA was then placed into the joint and allowed to sit for 5 minutes and then irrigated out. The capsulotomy was repaired with #1 Ethibond. The piriformis tendon was also repaired with #1 Ethibond. The muscle fascia was repaired with #1 Vicryl. I then left my digital marketing assistant to close the subcutaneous tissue with 2-0 Vicryl followed by a running 4-0 Monocryl in the subcuticular layer followed by Dermabond and a sterile dressing. The drapes were then removed. She was placed back into a supine position and taken to the Recovery Room under the care of Anesthesia after she was extubated. She tolerated the procedure well and there were no complications. ARELI
[2017-07-13] MEDS: CEFAZOLIN 2 G in NS 100 ML IV SCH (21:16)
[2017-07-13] MEDS: ROSUVASTATIN 20 MG TABLET PO SCH (21:18)
[2017-07-13] MEDS: SENNA + DOCUSATE TABLET PO SCH (21:19)
[2017-07-13] MEDS: INSULIN DETEMIR 100unit/ml INJECTION SQ SCH (21:20)
[2017-07-14] MEDS: NOZIN NASAL SWAB NAS SCH ×2 (00:29→09:13)
[2017-07-14] MEDS: CEFAZOLIN 2 G in NS 100 ML IV SCH (04:22)
[2017-07-14] MEDS: HYDROCODONE/APAP 5mg/325mg TABLET PO PRN (04:26)
[2017-07-14] MEDS: ONDANSETRON 4 MG/2 ML INJECTION IVP PRN (05:39)
[2017-07-14] MEDS ORDERED: NS 1,000 ML IV SCH ×2 (06:15→13:30)
[2017-07-14] MEDS: LEVOTHYROXINE 150 MCG TABLET PO SCH (06:56)
[2017-07-14] MEDS: INSULIN ASPART 100unit/ml INJECTION SQ SCH ×2 (08:44→11:42)
[2017-07-14] MEDS: SENNA + DOCUSATE TABLET PO SCH (08:46)
[2017-07-14] MEDS: ASPIRIN *EC* 81 MG TABLET PO SCH (08:47)
[2017-07-14] MEDS: AMLODIPINE 5 MG TABLET PO SCH (08:47)
[2017-07-14] MEDS: ENOXAPARIN 30 MG/0.3 ML INJECTION SQ SCH (08:47)
[2017-07-14] MEDS ORDERED: POLYETHYL GLYCOL 3350 17gm PACKET PO SCH (09:00)
[2017-07-14] MEDS: FUROSEMIDE 20 MG TABLET PO SCH (09:14)
[2017-07-14 09:15] VITALS: O2SAT 92
--- NOTE | 2017-07-14 11:22 | Progress Note ---
<Rosalba Smith V - Last Filed: 07/14/17 11:12> - Date 07/14/17 Subjective: Yodit is seen this morning in follow up. She is eager to get up out of bed and move. He has had some nausea that she associates with PO pain medication. Mild discomfort in Left hip. Rivera remains intact. Objective Vital signs: Temperature 98.3 F 07/14/17 07:00 Pulse Rate 69 07/14/17 07:00 Respiratory Rate 14 07/14/17 07:00 Blood Pressure 125/57 07/14/17 07:00 Pulse Oximetry 92 07/14/17 07:04 Height/Weight/BMI: Height 1.7 m Weight 89.6 kg Body Mass Index 31.1 - Constitutional Present: no acute distress, well nourished, well developed - Routine HEENT Exam Eye: Present: EOMI ENT: Present: mucous membranes moist, dentition normal - Routine Respiratory Exam Present: CTA bilaterally. Absent: wheezes - Routine Cardiovascular Exam Present: RRR, S1, S2. Absent: murmur - Routine Abdominal Exam Present: soft, non distended. Absent: normoactive bowel sounds (hypoactive), tenderness - Routine Extremities Exam Comments: Left hip pain- postop - Routine Skin Exam Present: dry, warm - Routine Neurological Exam Present: alert, oriented X3, CN II-XII intact - Routine Lymphatic Exam Lymphatic: Absent: adenopathy - Routine Psychiatric Exam Present: normal affect Results - Labs CBC & Chem 7: 07/14/17 04:37 07/14/17 04:37 Microbiology Results: Microbiology 07/11/17 21:24 Urine, Cath Rivera Urine Culture - Final Escherichia coli Assessment and Plan (1) Hip fracture, intertrochanteric Current visit: Yes Status: Acute Assessment and Plan: IMPRESSION Left femoral neck fracture E. coli UTI - POA Mild normocytic anemia - POA CAD s/p CABG DM2 HTN Hypothyroidism Nausea Obesity with BMI 31.2 Plan Have nursing staff D/C rivera cath Give 1 liter of NS at 150ml/hr for hydration given increase in BUN. She has been nauseated and did not have IVF overnight. Lasix dose held. Wean off oxygen Monitor labs. Noted LFTs are elevated. Monitor glucose and continue on NovoLog with meals and Levemir 35 units at HS Lovenox subcutaneous twice a day for postoperative anticoagulation. Can likely resume Plavix and reduce Lovenox to daily soon. Encourage work with PT/OT for post-op strengthening IRU screen Hospital Course Summary Disclaimer: The visit summary below is not to be considered part of the above Progress Note. Hospital Course: 07/11/17 left hip fracture CAD s/p CABG DM2 HTN hypothyroid Plan Admit as inpatient. Dr. Carmichael has been consulted. Will hold Plavix. Lovenox for DVT prophylaxis. Dilaudid and [place] available for pain. Patient walks 45 minutes every other day. She denies any chest pain or cardiac issues since CABG in 2009. Obtain baseline ECG. Will continue her home antihypertensives - metoprolol and amlodipine. Will continue her insulin regimen and monitor accuchecks. Will start diabetic diet. Resume levothyroxine. Zofran will be available for any nausea 07/12/17 Anti-emetics available prn. Continue amlodipine and metoprolol xl. Sliding scale for now. Restart meal-time Humalog and Levemir. X-rays showing left femoral neck fx instead of intratrochanteric. d/w Dr. Carmichael. Surgery will be tomorrow. Plavix on hold. Patient has abnormal UA but is asymptomatic. Will have Rivera changed and recheck UA. Continue levothyroxine. 07/13/17 left femoral neck fracture E. coli UTI - POA Mild normocytic anemia - POA CAD s/p CABG DM2 HTN hypothyroid nausea Give morning meds except insulin, asa, Lovenox, and Lasix. start bowel regimen. Keflex for E. coli UTI. BG under fairly decent control; had >200 reading after lunch yesterday but since then have all been <180. 07/14/17 Plan Have nursing staff D/C rivera cath Give 1 liter of NS at 150ml/hr for hydration given increase in BUN. She has been nauseated and did not have IVF overnight. Lasix dose held. Wean off oxygen Monitor labs. Noted LFTs are elevated. Monitor glucose and continue on NovoLog with meals and Levemir 35 units at HS Lovenox subcutaneous twice a day for postoperative anticoagulation. Can likely resume Plavix and reduce Lovenox to daily soon. Encourage work with PT/OT for post-op strengthening IRU screen <Jose Juan Davis - Last Filed: 07/14/17 15:27> - Date 07/14/17 Objective Vital signs: Temperature 96.5 F L 07/14/17 11:35 Pulse Rate 65 07/14/17 11:45 Respiratory Rate 16 07/14/17 11:35 Blood Pressure 112/55 07/14/17 11:45 Pulse Oximetry 92 07/14/17 11:35 Height/Weight/BMI: Height 1.7 m Weight 89.6 kg Body Mass Index 31.1 Results - Labs CBC & Chem 7: 07/14/17 04:37 07/14/17 04:37 Microbiology Results: Microbiology 07/11/17 21:24 Urine, Cath Rivera Urine Culture - Final Escherichia coli Assessment and Plan (1) Hip fracture, intertrochanteric Current visit: Yes Status: Acute Assessment and Plan: IMPRESSION Left femoral neck fracture E. coli UTI - POA Mild normocytic anemia - POA CAD s/p CABG DM2 HTN Hypothyroidism Nausea Obesity with BMI 31.2 Have independently interviewed and examined pt. Chart reviewed. 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 Care plan developed with my supervision; agree with above. Doing well this afternoon. Pain well controlled. Tolerating therapy and activities-does has some discomfort with transfers, but manageable. No nausea or ab pain. Eating well. Passing flatus. Breathing well without SOA, cough, congestion, or pain with breathing. Lungs: clear bilaterally CV: regular MSE: awake alert appropriate Plan: Medically improving - will discharge to IRU for continuation of therapy. Monitor lab. Continue cephalexin for urinary coverage. Encourage IS use. Medically stable for discharge to IRU. See orders for details. Hospital Course Summary Disclaimer: The visit summary below is not to be considered part of the above Progress Note.
[2017-07-14 11:46] VITALS: BP 112/55; PULSE 65
[2017-07-14 12:11] VITALS: RESP 16; TEMP 96.5
--- NOTE | 2017-07-14 15:51 | Discharge Summary ---
Discharge Information Date of admission: 07/11/17 18:25 Anticipated date of discharge: 07/14/17 Attending Physician: Jose Juan Davis MD Primary care physician: Miryam Brooks MD Consults: 07/11/17 18:35 Physician Consult [CONS] Routine Consulting Provider: Mars Carmichael Reason For Exam: hip fracture Ordering Provider has Notified [employer]: No 07/13/17 IRU Screening [Inpatient Rehab Screening] [CONS] Routine Screen requested by:: Case Management Comment Text:: surgery today 07/13/17 16:27 Physician Consult [CONS] Routine Consulting Provider: Erwin Santa Reason For Exam: Metabolic Bone Disease Ordering Provider has Notified [employer]: No - Discharge Diagnosis (1) Hip fracture, intertrochanteric Status: Acute left hip fracture CAD s/p CABG DM2 HTN hypothyroid - Procedures Procedures: 07/13/17- Left hip hemiarthroplasty. Dr. Carmichael - Laboratory Labs: 07/14/17 04:37 07/14/17 04:37 - Microbiology Microbiology 07/11/17 21:24 Urine, Cath Rivera Urine Culture - Final Escherichia coli - Radiology Radiology: 07/11- hip x-ray-left femoral neck fracture 07/12-hip x-ray- Impression: Subcapital femoral neck fracture with shortening and rotation. 07/13- Post-op Xray- Impression: New left total hip prosthesis without evidence of immediate complication. - Pathology None History of Present Illness HPI: Yodit is a 67-year-old woman with CAD, DM who fell trying to catch a puppy in a parking lot. She could not get up, but with help she was driven home. She sought medical attention in [place]. Dr. Mirza notified Dr. Carmichael of the hip fracture, and then contacted me to arrange transfer to [facility]. Patient says pain is controlled. Nurse reports patient having some nausea on arrival Objective Vital signs: Temperature 96.5 F L 07/14/17 11:35 Pulse Rate 65 07/14/17 11:45 Respiratory Rate 16 07/14/17 11:35 Blood Pressure 112/55 07/14/17 11:45 Pulse Oximetry 92 07/14/17 11:35 Height/Weight/BMI: Height 1.7 m Weight 89.6 kg Body Mass Index 31.1 - Constitutional Present: no acute distress, well nourished, well developed - Routine HEENT Exam Eye: Present: EOMI ENT: Present: mucous membranes moist, dentition normal - Routine Respiratory Exam Present: CTA bilaterally. Absent: wheezes - Routine Cardiovascular Exam Present: RRR, S1, S2. Absent: murmur - Routine Abdominal Exam Present: soft, normoactive bowel sounds, non distended. Absent: tenderness - Routine Extremities Exam Comments: Postop left hip pain - Routine Skin Exam Present: intact, dry, warm - Routine Neurological Exam Present: alert, oriented X3, CN II-XII intact - Routine Lymphatic Exam Lymphatic: Absent: adenopathy - Routine Psychiatric Exam Present: normal affect, cooperative Hospital Course This is a general summary of the patient's hospital course. For more details refer to the complete medical record. Hospital course: 07/11/17 left hip fracture CAD s/p CABG DM2 HTN hypothyroid Plan Admit as inpatient. Dr. Carmichael has been consulted. Will hold Plavix. Lovenox for DVT prophylaxis. Dilaudid and [place] available for pain. Patient walks 45 minutes every other day. She denies any chest pain or cardiac issues since CABG in 2009. Obtain baseline ECG. Will continue her home antihypertensives - metoprolol and amlodipine. Will continue her insulin regimen and monitor accuchecks. Will start diabetic diet. Resume levothyroxine. Zofran will be available for any nausea 07/12/17 Anti-emetics available prn. Continue amlodipine and metoprolol xl. Sliding scale for now. Restart meal-time Humalog and Levemir. X-rays showing left femoral neck fx instead of intratrochanteric. d/w Dr. Carmichael. Surgery will be tomorrow. Plavix on hold. Patient has abnormal UA but is asymptomatic. Will have Rivera changed and recheck UA. Continue levothyroxine. 07/13/17 left femoral neck fracture E. coli UTI - POA Mild normocytic anemia - POA CAD s/p CABG DM2 HTN hypothyroid nausea Give morning meds except insulin, asa, Lovenox, and Lasix. start bowel regimen. Keflex for E. coli UTI. BG under fairly decent control; had >200 reading after lunch yesterday but since then have all been <180. 07/14/17 Plan Have nursing staff D/C rivera cath Give 1 liter of NS at 150ml/hr for hydration given increase in BUN. She has been nauseated and did not have IVF overnight. Lasix dose held. Wean off oxygen Monitor labs. Noted LFTs are elevated. Monitor glucose and continue on NovoLog with meals and Levemir 35 units at HS Lovenox subcutaneous twice a day for postoperative anticoagulation. Can likely resume Plavix and reduce Lovenox to daily soon. Encourage work with PT/OT for post-op strengthening IRU screen Discharge- Patient was screened and accepted to IRU this afternoon for ongoing post-op strengthening and improved function. Will resume home Plavix and continue with ASA daily. No further post-op anticoagulation is needed. This plan was discussed with Orthopedic PA. The hospitalist services will continue to follow patient for medial management during her stay on IRU. At time of discharge medical care will return to PCP in Dr Todd Mclaughlin. Time spent with patient: discharge greater than 30 minutes DVT Prophylaxis: other (ASA, Plavix) Discharge Plan - Discharge Disposition Discharge Date: 07/14/17 Disposition: 61 To [facility] INPT Rehab *Condition: Stable *Reason For Visit: L Hip Fx - Discharge Medications *Discharge Medications: New PEG 3350 17gm PACKET [Miralax] 17 gm PO DAILY packet Senna + Docusate [Senna Plus Tablet] 1 tab PO BID tablet CephALEXin [Keflex] 500 mg PO Q12HR capsule Hydrocodone/APAP 7.5/325 [[place] 7.5/325] 1 - 2 tab PO Q6H PRN tablet PRN Reason: Pain Continue Metoprolol Succinate 25 mg PO DAILY Insulin Lispro [Humalog] 4 unit SQ AM Insulin Lispro [Humalog] 8 unit SQ PM Insulin Lispro [Humalog] 4 units SQ NOON hydrochlorothiazide 25 mg tablet 25 mg PO DAILY 90 Days tab levothyroxine 150 mcg tablet 150 mcg PO DAILY 30 Days tab Plavix (clopidogrel) 75 mg tablet 75 mg PO DAILY 30 Days tab lisinopril 10 mg tablet 10 mg PO DAILY 90 Days tab aspirin 81 mg tablet,delayed release 81 mg PO Q6H Lasix (Furosemide) 20 mg tablet 20 mg PO QAM Crestor (rosuvastatin) 40 mg tablet 40 mg PO DAILY 30 Days tab Levemir FlexTouch (insulin detemir) 100 unit/mL (3 mL) PEN 35 units SQ DAILY 72 Days #45 Norvasc (amlodipine) 5 mg tablet 5 mg PO DAILY 30 Days tab - Discharge Packet/Instructions *Diet: Carb consistent, 1800 diabetic diet *Activity: WBAT *Pain Management/Treatment: [place] as needed for pain control *Wound Care: N/A Additional Instructions: Will resume home Plavix and aspirin. No need for further anticoagulation postoperatively *Expected Signs/Symptoms: N/A *Notify Physician if: N/A *During Business Hours Contact: N/A *After Business Hours Contact: N/A *Pending Lab/Results: No Pending Lab - IRU/GEN Discharge/Transfer - Referrals/Follow Up *Referrals/Follow Up: Mars Carmichael MD [Physician] - - Patient Handouts Patient Handouts: [facility] Postop Instructions - Dismissal Complete Discharge Instructions are:: Complete
--- NOTE | 2017-07-14 16:32 | Orthopedic Progress Note ---
Date: Subjective/Severity of Illness: Yodit was seen on morning rounds this AM. She reported minimal pain at rest. She is ready to get up with PT. No breathing concerns and denies CP. Orthopedic Objective PO Vital signs: Temperature 96.5 F L 07/14/17 11:35 Pulse Rate 65 07/14/17 11:45 Respiratory Rate 16 07/14/17 11:35 Blood Pressure 112/55 07/14/17 11:45 Pulse Oximetry 92 07/14/17 11:35 Height and Weight: Height 5 ft 7 in Weight 197 lb 8.547 oz Body Mass Index 31.1 - Constitutional General Appearance: Present: alert, orientated x3, no acute distress - Respiratory Exam Present: non-labored - Cardiovascular Exam Present: pedal pulses intact - Surgical Site Incision: Mepilex dressing intact, no drainage - Integumentary Exam Present: pink, warm, dry, intact - Neurological Exam Present: no deficits - Psychiatric Exam Present: alert, normal affect - Labs Result Diagrams: 07/14/17 04:37 07/14/17 04:37 Abnormal lab results 07/14/17 07/14/17 Range/Units 04:37 04:37 RBC 3.59 L (4.00-5.20) M/MM3 Hgb 11.1 L (12-16) GM/DL Hct 33.3 L (36-46) % Neut % (Auto) 83.3 H (33-66) % Lymph % (Auto) 10.4 L (23-45) % Neut # (Auto) 8.6 H (1.8-7.7) T/MM3 BUN 52.0 H* (7-17) MG/DL BUN/Creatinine Ratio 43 H (6-26) RATIO Glucose 153 H (65-110) MG/DL Calculated Osmolality 281 H (261-280) MOSM/KG AST 59 H (14-36) U/L ALT 56 H (9-52) U/L H & H 07/12/17 07/13/17 07/14/17 Range/Units 04:30 03:56 04:37 Hgb 11.4 L 11.8 L 11.1 L (12-16) GM/DL Hct 34.4 L 36.3 33.3 L (36-46) % Coagulation 07/11/17 Range/Units 18:45 INR 1.07 (0.99-1.21) Orthopedic Assessment and Plan (1) Left displaced femoral neck fracture Status: Acute Assessment and Plan: S/P L hip kenny arthroplasty 07/13/[address] Jany RODRIGUEZ WBAT Mobilize with therapy. Lovenox. Hospital Course Summary Disclaimer: The visit summary below is not to be considered part of the above Progress Note. Hospital Course: 07/11/17 left hip fracture CAD s/p CABG DM2 HTN hypothyroid Plan Admit as inpatient. Dr. Carmichael has been consulted. Will hold Plavix. Lovenox for DVT prophylaxis. Dilaudid and [place] available for pain. Patient walks 45 minutes every other day. She denies any chest pain or cardiac issues since CABG in 2009. Obtain baseline ECG. Will continue her home antihypertensives - metoprolol and amlodipine. Will continue her insulin regimen and monitor accuchecks. Will start diabetic diet. Resume levothyroxine. Zofran will be available for any nausea 07/12/17 Anti-emetics available prn. Continue amlodipine and metoprolol xl. Sliding scale for now. Restart meal-time Humalog and Levemir. X-rays showing left femoral neck fx instead of intratrochanteric. d/w Dr. Carmichael. Surgery will be tomorrow. Plavix on hold. Patient has abnormal UA but is asymptomatic. Will have Rivera changed and recheck UA. Continue levothyroxine. 07/13/17 left femoral neck fracture E. coli UTI - POA Mild normocytic anemia - POA CAD s/p CABG DM2 HTN hypothyroid nausea Give morning meds except insulin, asa, Lovenox, and Lasix. start bowel regimen. Keflex for E. coli UTI. BG under fairly decent control; had >200 reading after lunch yesterday but since then have all been <180. 07/14/17 Plan Have nursing staff D/C rivera cath Give 1 liter of NS at 150ml/hr for hydration given increase in BUN. She has been nauseated and did not have IVF overnight. Lasix dose held. Wean off oxygen Monitor labs. Noted LFTs are elevated. Monitor glucose and continue on NovoLog with meals and Levemir 35 units at HS Lovenox subcutaneous twice a day for postoperative anticoagulation. Can likely resume Plavix and reduce Lovenox to daily soon. Encourage work with PT/OT for post-op strengthening IRU screen Discharge- Patient was screened and accepted to IRU this afternoon for ongoing post-op strengthening and improved function. Will resume home Plavix and continue with ASA daily. No further post-op anticoagulation is needed. This plan was discussed with Orthopedic PA. The hospitalist services will continue to follow patient for medial management during her stay on IRU. At time of discharge medical care will return to PCP in Dr Todd Mclaughlin.
== END 2017-07-14 16:45 | DRG 470 ==
LOC: SUATTDRO 18:25 → SRG 18:25
PROVIDERS: ADMIT Hospitalist; ATTEND Hospitalist

== ENCOUNTER 2017-07-14 16:45 | Inpatient (IN) ==
[2017-07-14] MEDS ORDERED: METOCLOPRAMIDE 10mg/2ml INJECTION IVP PRN ×2 (17:28)
[2017-07-14] MEDS ORDERED: DEXTROSE 50% SYRINGE 50ml (1 AMP) IVP PRN (17:28)
[2017-07-14] MEDS ORDERED: GLUCOSE ORAL GEL 40% 37.5gm PO PRN (17:28)
[2017-07-14] MEDS ORDERED: PNEUMOCOCCAL 13 VACCINE 0.5ml INJECTION IM ONE (18:02)
[2017-07-14 18:08] VITALS: BMI 32.0
[2017-07-14] MEDS ORDERED: FALL RISK - PHARMACY CONSULT MC ONE (19:51)
[2017-07-14] MEDS: SENNA + DOCUSATE TABLET PO SCH (20:55)
[2017-07-14] MEDS: ROSUVASTATIN 20 MG TABLET PO SCH (20:55)
[2017-07-14] MEDS: INSULIN DETEMIR 100unit/ml INJECTION SQ SCH (21:03)
--- NOTE | 2017-07-14 21:28 | IRU History & Physical Report ---
HPI [facility] Date: Chief complaint: I fell HPI: Ms. Zaman is a very pleasant 67-year-old female whose primary care physician is Dr. Miryam Brooks. She is referred to inpatient rehabilitation by Dr. Mynor Downey, hospitalist. History is obtained predominantly from the patient. also present in the room during the interview and examination. She was in a parking lot admiring a small puppy belonging to someone else. As the patient turned to leave, the puppy tried to follow after her. The patient stepped on the puppy's leash and the puppy kept going, resulting in the patient falling. This was on July 11, 2017. She apparently was able to get up but was ultimately brought to the emergency department at [place], [place]. She was referred to Dr. Carmichael at [facility]. She was admitted on July 11, 2017 to [facility] and taken to surgery on July 13, [address] Carmichael. Fracture was noted to be a left displaced femoral neck fracture. Procedure performed on July 13 was left hip hemiarthroplasty. She tolerated the procedure well but did have some nausea particularly with pain medication in the postoperative time frame. The patient does have history of diabetes mellitus. She checks her blood sugars 4 times every other day. Her most recent A1c that she recalls was in March at which time it was approximately 7.3. She reports occasional episodes of hypoglycemia. She reports her average fasting sugars in the morning are between 90 and 100. She does have history of coronary artery disease status post 4 vessel bypass in 2009. She denies any chest pain since that time.she has been on Plavix but that has been held in view of the current surgery. Finally, she does have history of hypertension. She does occasionally check her blood pressures at home and typically they're running about 124/56. However at times the blood pressures do go up and she feels as though she can tell when they're elevated. 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 She lives with her in their own home. She does not use any assistive devices. They do have about 5 steps to get up into their home she states. Patient's current level of functioning is as follows: Patient is supervision level for grooming and upper body dressing. She is maximum assistance for lower body dressing, toileting and walking. She is minimal assistance for bed/ chair/wheelchair transfers. She is minimal assistance for toilet transfers. She did require verbal cues to equalize length of gait to normalize gait pattern with PT. Significant weightbearing was noted through the upper extremities while using the front-wheeled walker. Patient did exhibit reduced strength, decreased endurance, increased pain along with difficulty with balance and increased fatigue during the time of therapy. Medical problems identified which will require active management and monitoring while on the inpatient rehabilitation unit are as follows: 1. Diabetes mellitus type 2. The patient is at risk for hyperglycemia or hypoglycemia in view of her variable intake (nausea) as well as increased work output. The patient is also at risk for surgical site infection in view of the diabetes. 2. Hypertension: The patient does have occasional episodes of elevated blood pressure beyond her baseline. 3. History of coronary artery disease. Patient is at risk for further angina in view of the additional work requirements for rehabilitation. 4. UTI diagnosed on acute: e. Coli, on cephalexin The following disciplines will be utilized while on acute inpatient rehabilitation: 1. 24 hour rehabilitation nursing to monitor blood sugars and blood pressure carefully along with wound monitoring to insure no evidence of infection. 2. Occupational therapy and physical therapy for ADLs and ambulation 3. Dietitian to monitor nutritional status in view of her diabetes and recent surgery 4. Physician supervision to monitor the above medical conditions. [facility] Patient Stated Medical History Cerebrovascular Accident Yes Paralysis No Seizures No Syncope No Cataracts Yes Coronary Artery Disease Yes Hypertension Yes Other Cardiology Yes: CABGx4 2009 Asthma No Bronchitis No Chronic Obstructive Pulmonary No Disease (COPD) Pneumonia No Pulmonary Edema No Pulmonary Embolism No Sleep Apnea No Tuberculosis No Other Respiratory No Diabetes Mellitus Type 1 Yes Diabetes Mellitus Type 2 Yes Cirrhosis No Constipation No Gastroesophageal Reflux No Disease Gastrointestinal Bleeding No Hepatitis No Hiatal Hernia No Obstructive Bowel No Ulcer No Other GI No Hx Incontinence No Hx Urinary Tract Infection Yes Other Hematologic Yes: blood transfusion as a child after tonsillectomy Osteoarthritis Yes Other Musculoskeletal No Shingles Yes Anesthesia Reactions Yes: N/V Blood Transfusions Yes: as a child after tonsillectomy Depression No Post Menopausal Yes Clinic Medical History (Last Reviewed 06/10/17 @ 08:29 by Dexter Feldman Irene) Hip fracture, intertrochanteric (Acute Medical) Left displaced femoral neck fracture (Acute Medical) Biceps rupture, proximal (Acute Medical) Chronic rupture, long head Cataract (Acute Medical) Diabetes (Acute Medical) High blood pressure (Acute Medical) High cholesterol (Acute Medical) Surgical History: C SECTIONS X 3, GALLBLADDER 2010 , QUAD BYPASS HEART SURGERY 2010,. LT SHOULDER ARTHROSCOPIC DEBRIDEMENT SUPERIOR LABRUM & LONG HEAD BICEPS TENDON STUMP, DEBRIDEMENT SUBSCAPULARIS, SUBACROMIAL BURSECTOMY WITH SAD 05-04-17 Family History: Family History (Last Reviewed 06/10/17 @ 08:29 by Dexter Feldman [facility]) Mother Dementia High blood pressure High cholesterol Brother High cholesterol High blood pressure Lung cancer Father Heart attack Maternal Grandmother Diabetes - Social History Smoking status: Never smoker Substance use type: does not use Alcohol intake: never Alcohol intake frequency: does not drink Housing: house Household members: spouse Current occupational status: employed (patient states that 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 works for a [employer] in [place]. 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 She is in the middle of a project right now and would like to get back to work as soon as feasible. Review of Systems - Constitutional Constitutional: Present: fatigue, weakness. Absent: anorexia, chills, fever(s) , headache(s), lethargy, malaise, night sweats, weight gain, weight loss - EENMT Eyes: Absent: blurry vision, change in vision, diplopia Mouth/Throat: Absent: changes in swallowing, painful swallowing, change in taste , bleeding gums, change in voice - Cardiovascular Cardiovascular: Absent: chest pain, palpitations, syncope, dyspnea on exertion, orthopnea, edema, cyanosis, heart murmur Rhythm: Present: regular rhythm Vascular: Absent: intermittent claudication, pedal edema, unilateral swelling - Respiratory Respiratory: Absent: cough, dyspnea, hemoptysis, dyspnea on exertion, wheezing, pain on inspiration, chest congestion, excessive phlegm production - Gastrointestinal Gastrointestinal: Present: nausea (has developed nausea with pain medication.). Absent: abdominal pain, change in bowel habits, constipation, diarrhea, dyspepsia, dysphagia, early satiety, hematochezia, melena, vomiting - Musculoskeletal Musculoskeletal: Present: myalgias. Absent: abnormal gait, arthralgias, back pain, joint swelling, limited range of motion, muscle weakness - Integumentary/Breasts Integumentary: Absent: alopecia, erythema, lesions, pruritus, rash, jaundice - Neurological Neurological: Absent: abnormal gait, abnormal movements, abnormal speech, confusion, convulsions, dizziness, focal weakness, frequent falls, headache(s), loss of vision, memory loss, numbness, paresthesias, tremor(s) - Psychiatric Psychiatric: Absent: abnormal sleep pattern, anxiety, depression - Endocrine Endocrine: Absent: cold intolerance, flushing, heat intolerance, palpitations - Hematologic/Lymphatic Hematologic/Lymphatic: Absent: easy bleeding, easy bruising, lymphadenopathy - Allergic/Immunologic Allergic/Immunologic: Absent: urticaria Medications Home Medications Medication Instructions Recorded Confirmed Type Crestor (rosuvastatin) 40 mg tablet 40 mg PO DAILY 30 Days tab 03/25/17 History Levemir FlexTouch (insulin 35 units SQ DAILY 72 Days #45 03/25/17 07/11/17 History detemir) 100 unit/mL (3 mL) PEN Plavix (clopidogrel) 75 mg tablet 75 mg PO DAILY 30 Days tab 03/25/17 07/12/17 History hydrochlorothiazide 25 mg tablet 25 mg PO DAILY 90 Days tab 03/25/17 07/12/17 History levothyroxine 150 mcg tablet 150 mcg PO DAILY 30 Days tab 03/25/17 07/12/17 History lisinopril 10 mg tablet 10 mg PO DAILY 90 Days tab 03/25/17 07/12/17 History Lasix (Furosemide) 20 mg tablet 20 mg PO QAM 04/08/17 07/12/17 History Norvasc (amlodipine) 5 mg tablet 5 mg PO DAILY 30 Days tab 04/08/17 07/12/17 History aspirin 81 mg tablet,delayed 81 mg PO Q6H 04/08/17 07/11/17 History release Insulin Lispro [Humalog] 4 unit SQ AM 04/13/17 07/11/17 History Insulin Lispro [Humalog] 4 units SQ NOON 04/13/17 07/11/17 History Insulin Lispro [Humalog] 8 unit SQ PM 04/13/17 07/11/17 History Metoprolol Succinate 25 mg PO DAILY 04/13/17 07/12/17 History Allergies Allergy/AdvReac Type Severity Reaction Status Date / Time No Known Allergies Allergy Verified 07/11/17 18:46 Exam Vital Signs: Temperature 97.7 F 07/14/17 17:28 Pulse Rate 99 07/14/17 17:28 Respiratory Rate 18 07/14/17 17:28 Blood Pressure 148/68 H 07/14/17 17:28 Pulse Oximetry 97 07/14/17 17:28 Height/Weight/BMI: Height 1.7 m Weight 92.7 kg Body Mass Index 32.0 - Constitutional Present: moderate distress (ddue to hip pain. Primarily this is when she is up and about with assistance.), well nourished, well developed, obese, cooperative - Routine HEENT Exam Head: Present: normocephalic, atraumatic. Absent: cushingoid faces, abrasion, laceration, hematoma Eye: Present: EOMI, PERRL. Absent: conjunctival icterus, scleral injection, periorbital swelling, nystagmus ENT: Present: mucous membranes moist, oropharynx clear - Routine Neck Exam Present: supple, full ROM, trachea midline. Absent: lymphadenopathy, thyromegaly, tenderness, swelling - Routine Chest/Breast/Axilla Exam Chest wall: Absent: tenderness, mass Axillae: Absent: lymphadenopathy, mass - Routine Respiratory Exam Present: CTA bilaterally. Absent: accessory muscle use, decreased breath sounds , prolonged expiratory phase, rales, respiratory distress, rhonchi, stridor, wheezes, crackles, distant breath sounds - Routine Cardiovascular Exam Present: RRR, S1, S2, no murmur. Absent: gallop, S3, S4, click, irregular rhythm - Routine Abdominal Exam Present: soft, normoactive bowel sounds, non distended, non tender, wound ( ssurgical site is dressed at present and I did not remove the dressing.). Absent: rebound, guarding, firm, rigid, organomegaly, mass, hernia - Routine Extremities Exam Present: no edema, non tender, pulses intact, normal capillary refill. Absent: cyanosis, clubbing - Routine Back/Spine/Pelvis Exam Back/Spine: Present: full ROM. Absent: scoliosis, kyphosis - Routine Skin Exam Present: intact, dry, warm. Absent: cyanosis, erythema, pallor, mottling, petechiae, urticaria, lesions, jaundice - Routine Neurological Exam Present: alert, oriented X3, CN II-XII intact, sensory deficit, motor deficit, moving all extremities, normal speech - Routine Psychiatric Exam Present: normal affect, normal thought process, cooperative, good insight, good judgment. Absent: depressed, anxious Sepsis Assessment - Evaluation Confirmed Suspected Infection: Yes (UTI on acute: E. Coli, on cephalexin) SIRS Criteria: none IRU A/P (1) Left displaced femoral neck fracture Current visit: No Status: Acute The patient has a repaired left displaced femoral neck fracture. She does have discomfort in the hip with ambulation. She has significant functional deficits which will be addressed via an interdisciplinary approach while on the inpatient rehabilitation unit. 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 In view of her nausea as well as increased work requirements on rehabilitation she is at risk for hypoglycemic episodes as well as hyperglycemia. She will be monitored carefully in this regard. (3) Benign essential hypertension Current visit: Yes Status: Chronic She is at risk for uncontrolled hypertension in view of the pain involved with the hip fracture as well as increased work for ambulation. Her blood pressures will be monitored carefully. (4) UTI (urinary tract infection) Qualifiers: Urinary tract infection type: acute cystitis Hematuria presence: with hematuria Qualified Code(s): N30.01 - Acute cystitis with hematuria Current visit: Yes Status: Acute She has an Escherichia coli urinary tract infection noted while on acute care. She is treated with cephalexin. DVT Prophylaxis: SCD's, Lovenox Resuscitation Status: Full Code - Course Hospital Course: Frank Fischer MD: - Interventions to Obtain Goals PT Treatment Plan: Balance/Proprioception, Functional Activities, Gait Training , Patient/Family Education OT Treatment Plan: ADL (Basic Care), IADL, Pt./Family Education Goals Progress/Modifications: A multidisciplinary approach will be taken in view of the patient's multiple medical problems and need for occupational therapy and physical therapy. She will also be seen by the dietitian.
--- NOTE | 2017-07-14 21:46 | IRU 24Hr Post Admit Eval ---
24 Hr Post Admission Physical - Relevant Changes Relevant Changes: No Reviewed: I have reviewed the patient's information and concur with the finding and results of the pre-admission screen. Certification: I certify the patient for rehabilitation. 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 Qualified Code(s) : E11.59 - Type 2 diabetes mellitus with other circulatory complications; 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; Z79.4 - [facility] (current) use of insulin ; Z79.4 - [facility] (current) use of insulin; Z79.4 - [facility] (current) use of insulin Code(s): E11.9 - Type 2 diabetes mellitus without complications Classification: Present on IRF Admission, IRF Tx That Should Address Diagnosis, Diagnosis Requiring Medical Follow Up (3) Benign essential hypertension Status: Chronic Code(s): I10 - Essential (primary) hypertension Classification: Present on IRF Admission, IRF Tx That Should Address Diagnosis, Diagnosis Requiring Medical Follow Up (4) UTI (urinary tract infection) Status: Acute Qualifiers: Urinary tract infection type: acute cystitis Hematuria presence: with hematuria Qualified Code(s): N30.01 - Acute cystitis with hematuria Code(s): N39.0 - Urinary tract infection, site not specified Classification: Present on IRF Admission, IRF Tx That Should Address Diagnosis, Diagnosis Requiring Medical Follow Up - Prior Functional Status Lives With: Spouse Residence Type: Apartment/Private Home Assitive Devices: None Prior Functional Status: Indep. at home or school, Indep. w/ IADL - Current Functional Status Current Level of Function: Patient's current level of functioning is as follows: Patient is supervision level for grooming, upper body dressing. She is maximum assistance for lower body dressing, toileting and walking. She is minimal assistance for bed/chair/ wheelchair transfers. She is minimal assistance for toilet transfers. She did require verbal cues to equalize length of gait to normalize gait pattern. Significant weightbearing was noted through the upper extremities while using the front-wheeled walker. Patient did exhibit reduced strength, decreased endurance, increased pain along with difficulty with balance and increased fatigue during the time of therapy. Failed Alternative Therapy: Arrived from Acute Care Patient Requirements: The patient requires oversight by rehabilitation physician to manage their rehabilitation treatment plan and multidisciplinary approach to care that can only be provided in an IRF and requires a multidisciplinary approach to care, provided by professional PTs, OTs, dieticians, rehabilitation nurses and is not available in lesser levels of care. Limitations Req: Mobility Impairment, ADL Impairment Physical Therapy Minutes: 90 Occupational Therapy Minutes: 90 Therapy: The patient is to receive therapy at least 5 days a week. ROM Deficit: Left Lower Extremity - Complications/Comorbidities Impact on Functional Outcomes: her diabetes mellitus and risk of hypoglycemia may be an impact on functional outcomes. Barriers to Discharge: Weakness, Endurance, Pain Control, Medical Limitation - Plan to Avoid Complications Plan to Avoid Complications: The patient cannot receive this care in a lesser intensive setting such as [facility] or Outpatient Therapy due to the patient requiring the following : Close nursing monitoring of blood sugars, assessment of wound to rule out infection, blood pressure monitoring .
[2017-07-15] MEDS: ENOXAPARIN 30 MG/0.3 ML INJECTION SQ SCH ×3 (00:55→22:08)
[2017-07-15] MEDS: HYDROCODONE/APAP 7.5 MG/325 MG TABLET PO PRN ×3 (01:02→22:18)
[2017-07-15] MEDS: ONDANSETRON ODT 4 MG TABLET PO PRN ×3 (01:02→22:18)
[2017-07-15] MEDS: LEVOTHYROXINE 150 MCG TABLET PO SCH (06:38)
[2017-07-15] MEDS: AMLODIPINE 5 MG TABLET PO SCH (08:35)
[2017-07-15] MEDS: ASPIRIN *EC* 81 MG TABLET PO SCH (08:35)
[2017-07-15] MEDS: SENNA + DOCUSATE TABLET PO SCH ×2 (08:35→22:08)
[2017-07-15] MEDS: INSULIN ASPART 100unit/ml INJECTION SQ SCH ×3 (08:36→18:04)
[2017-07-15] MEDS: POLYETHYL GLYCOL 3350 17gm PACKET PO SCH (08:37)
[2017-07-15] MEDS ORDERED: FUROSEMIDE 20 MG TABLET PO SCH (09:00)
--- NOTE | 2017-07-15 11:48 | History & Physical Report ---
<Rosalba Smith V - Last Filed: 07/15/17 11:43> History of Present Illness Date: 07/15/17 Chief complaint: S/P left hip repair, Left medial leg pain HPI: Yodit is a pleasant 67yr old female who is known to the hospitalist services for recent admission on 07/11/17 following a fall resulting in a left displaced femoral neck fracture. On . GEO patient underwent a left hip hemarthrosis plasty under the care of Dr. Carmichael. She tolerated this procedure well. This operatively she was screened and accepted to the inpatient rehabilitation unit on [facility] for ongoing therapy and postoperative strengthening. Hospital services were consulted for medical management of her existing comorbidities including type II diabetes, hypertension and coronary artery disease. Upon initial acute admission, she was found to have a urinary tract infection with presence of Escherichia coli. She was started on Keflex on 07/12/17. Cesar is seen this morning for initial medical consultation. She is alert and resting in bed with family at the bedside. She complains of being quite fatigued as she has already worked with therapy this morning. She does report having a new type of discomfort overnights to the left medial aspect of the lower leg. She complains of feeling a burning sensation to the medial left ankle that radiates up to the medial aspect just below her knee. With even light touch of the skin. Upon examination she has significant discomfort. There is no evidence of erythema, swelling or injury on exam. Patient does have good range of motion to the left ankle. Morning laboratory studies are reviewed, hemoglobin this morning 10.0. Electro-lites are normal, BUN is elevated at 59 and creatinine of 1.1. Was reported on morning labs. Patient was hypoglycemic with a sugar of 46. Review of Systems All systems PM: 10-point ROS was reviewed, no additional remarkable complaints except - Constitutional Constitutional: Present: fatigue - Musculoskeletal Musculoskeletal: Present: as per HPI Musculoskeletal Comments: Left hip pain- post-op Left medial lower leg pain [facility] Patient Stated Medical History Hip fracture, intertrochanteric (Acute Medical) Left displaced femoral neck fracture (Acute Medical) DM type 2 (diabetes mellitus, type 2) (Chronic Medical) Benign essential hypertension (Chronic Medical) UTI (urinary tract infection) (Acute Medical) Biceps rupture, proximal (Acute Medical) Chronic rupture, long head Cataract (Acute Medical) Diabetes (Acute Medical) High blood pressure (Acute Medical) High cholesterol (Acute Medical) Surgical History: C SECTIONS X 3, GALLBLADDER 2010 , QUAD BYPASS HEART SURGERY 2009,. LT SHOULDER ARTHROSCOPIC DEBRIDEMENT SUPERIOR LABRUM & LONG HEAD BICEPS TENDON STUMP, DEBRIDEMENT SUBSCAPULARIS, SUBACROMIAL BURSECTOMY WITH SAD 05-04-17 Family History: Family History (Last Reviewed 06/10/17 @ 08:29 by Dexter Feldman Irene) Mother Dementia High blood pressure High cholesterol Brother High cholesterol High blood pressure Lung cancer Father Heart attack Maternal Grandmother Diabetes - Social History Smoking status: Never smoker Substance use type: does not use Housing: house Household members: spouse Current occupational status: employed Current residence: Apartment/Private Home Social history: PCP Dr Miryma Mclaughlin, [place] Medications Home Medications Medication Instructions Recorded Confirmed Type Crestor (rosuvastatin) 40 mg tablet 40 mg PO DAILY 30 Days tab 03/25/17 History Levemir FlexTouch (insulin 35 units SQ DAILY 72 Days #45 03/25/17 07/11/17 History detemir) 100 unit/mL (3 mL) PEN Plavix (clopidogrel) 75 mg tablet 75 mg PO DAILY 30 Days tab 03/25/17 07/12/17 History hydrochlorothiazide 25 mg tablet 25 mg PO DAILY 90 Days tab 03/25/17 07/12/17 History levothyroxine 150 mcg tablet 150 mcg PO DAILY 30 Days tab 03/25/17 07/12/17 History lisinopril 10 mg tablet 10 mg PO DAILY 90 Days tab 03/25/17 07/12/17 History Lasix (Furosemide) 20 mg tablet 20 mg PO QAM 04/08/17 07/12/17 History Norvasc (amlodipine) 5 mg tablet 5 mg PO DAILY 30 Days tab 04/08/17 07/12/17 History aspirin 81 mg tablet,delayed 81 mg PO Q6H 04/08/17 07/11/17 History release Insulin Lispro [Humalog] 4 unit SQ AM 04/13/17 07/11/17 History Insulin Lispro [Humalog] 4 units SQ NOON 04/13/17 07/11/17 History Insulin Lispro [Humalog] 8 unit SQ PM 04/13/17 07/11/17 History Metoprolol Succinate 25 mg PO DAILY 04/13/17 07/12/17 History Allergies Allergy/AdvReac Type Severity Reaction Status Date / Time No Known Allergies Allergy Verified 07/11/17 18:46 Exam Vital Signs: Temperature 97.7 F 07/15/17 08:00 Pulse Rate 75 07/15/17 08:00 Respiratory Rate 16 07/15/17 08:00 Blood Pressure 106/58 07/15/17 08:00 Pulse Oximetry 93 07/15/17 08:00 Height/Weight/BMI: Height 1.7 m Weight 92.7 kg Body Mass Index 32.0 - Constitutional Present: no acute distress, well nourished, well developed - Routine HEENT Exam Eye: Present: EOMI ENT: Present: mucous membranes moist, dentition normal - Routine Respiratory Exam Present: CTA bilaterally. Absent: wheezes - Routine Cardiovascular Exam Present: RRR, S1, S2. Absent: murmur - Routine Abdominal Exam Present: soft, normoactive bowel sounds, non distended. Absent: tenderness - Routine Extremities Exam Present: no edema, pulses intact Comments: Tenderness to left medial lower leg and ankle. No evidence of erythema or swelling - Routine Skin Exam Present: intact, dry, warm - Routine Neurological Exam Present: alert, oriented X3, CN II-XII intact - Routine Psychiatric Exam Present: normal affect, cooperative Results - Labs CBC & Chem 7: 07/15/17 05:44 07/15/17 05:44 Assessment and Plan (1) S/P hip hemiarthroplasty Current visit: Yes Status: Acute (2) Acute pain of left lower extremity Current visit: Yes Status: Acute Assessment and Plan: Impression Status post left hip hemiararthroplasty Acute left lower extremity-medial lower leg pain UTI- POA Type II diabetes Hypertension Coronary artery disease Plan Agree with admission to the IRU under the care of Dr. Fischer for postoperative strengthening and improve function. Will obtain an x-ray of the left ankle as well as a uric acid for further workup of acute discomfort in the left lower extremity. There is no evidence of acute inflammation, erythema or signs of infection currently. Consult Dr. Carmichael, case discussed with Addie. Question if there is a postoperative neuropathy type discomfort given the description by the patient. She is tender along the femoral nerve dermatome. On her blood sugars carefully given. Patient did have an episode of hypoglycemia. Will decreased evening mealtime insulin to 6 units. Continue to follow routine labs tomorrow for postoperative anemia. Continue Plavix and aspirin as this will cover for postop anticoagulation Continue with Keflex through 07/17 for treatment of Escherichia coli UTI Encourage work with PT/OT for ongoing strengthening Case discussed with attending, Dr Davis At time of discharge medical care will return to primary care provider in Dr. Miryam Mclaughlin [facility] Course Summary Disclaimer: The visit summary below is not to be considered part of the above Progress Note. Hospital Course: 07/15/17 Impression Status post left hip hemiararthroplasty Acute left lower extremity-medial lower leg pain UTI- POA Type II diabetes Hypertension Coronary artery disease Plan Agree with admission to the IRU under the care of Dr. Fischer for postoperative strengthening and improve function. Will obtain an x-ray of the left ankle as well as a uric acid for further workup of acute discomfort in the left lower extremity. There is no evidence of acute inflammation, erythema or signs of infection currently. Consult Dr. Carmichael, case discussed with dAdie. Question if there is a postoperative neuropathy type discomfort given the description by the patient. She is tender along the femoral nerve dermatome. On her blood sugars carefully given. Patient did have an episode of hypoglycemia. Will decreased evening mealtime insulin to 6 units. Continue to follow routine labs tomorrow for postoperative anemia. Continue Plavix and aspirin as this will cover for postop anticoagulation Continue with Keflex through 07/17 for treatment of Escherichia coli UTI Encourage work with PT/OT for ongoing strengthening Case discussed with attending, Dr Davis At time of discharge medical care will return to primary care provider in Dr. Miryam Mclaughlin <Jose Juan Davis - Last Filed: 07/15/17 14:58> History of Present Illness Date: 07/15/17 [facility] Patient Stated Medical History Cerebrovascular Accident Yes Paralysis No Seizures No Syncope No Cataracts Yes Coronary Artery Disease Yes Hypertension Yes Other Cardiology Yes: CABGx4 2009 Asthma No Bronchitis No Chronic Obstructive Pulmonary No Disease (COPD) Pneumonia No Pulmonary Edema No Pulmonary Embolism No Sleep Apnea No Tuberculosis No Other Respiratory No Diabetes Mellitus Type 1 Yes Diabetes Mellitus Type 2 Yes Cirrhosis No Constipation No Gastroesophageal Reflux No Disease Gastrointestinal Bleeding No Hepatitis No Hiatal Hernia No Obstructive Bowel No Ulcer No Other GI No Hx Incontinence No Hx Urinary Tract Infection Yes Other Hematologic Yes: blood transfusion as a child after tonsillectomy Osteoarthritis Yes Other Musculoskeletal No Shingles Yes Anesthesia Reactions Yes: N/V Blood Transfusions Yes: as a child after tonsillectomy Depression No Post Menopausal Yes Clinic Medical History (Last Reviewed 06/10/17 @ 08:29 by GEORGINA Loving) Hip fracture, intertrochanteric (Acute Medical) Left displaced femoral neck fracture (Acute Medical) DM type 2 (diabetes mellitus, type 2) (Chronic Medical) Benign essential hypertension (Chronic Medical) UTI (urinary tract infection) (Acute Medical) Acute pain of left lower extremity (Acute Medical) Biceps rupture, proximal (Acute Medical) Chronic rupture, long head Cataract (Acute Medical) Diabetes (Acute Medical) High blood pressure (Acute Medical) High cholesterol (Acute Medical) Family History: Family History (Last Reviewed 06/10/17 @ 08:29 by GEORGINA Loving) Mother Dementia High blood pressure High cholesterol Brother High cholesterol High blood pressure Lung cancer Father Heart attack Maternal Grandmother Diabetes Exam Vital Signs: Temperature 97.7 F 07/15/17 08:00 Pulse Rate 75 07/15/17 08:00 Respiratory Rate 16 07/15/17 08:00 Blood Pressure 106/58 07/15/17 08:00 Pulse Oximetry 93 07/15/17 08:00 Height/Weight/BMI: Height 1.7 m Weight 92.7 kg Body Mass Index 32.0 Results - Labs CBC & Chem 7: 07/15/17 05:44 07/15/17 05:44 Assessment and Plan (1) S/P hip hemiarthroplasty Current visit: Yes Status: Acute (2) Acute pain of left lower extremity Current visit: Yes Status: Acute Assessment and Plan: Impression Status post left hip hemiararthroplasty Acute left lower extremity-medial lower leg pain UTI- POA Type II diabetes Coronary artery disease Hypertension Have independently interviewed and examined pt. Chart reviewed. Case discussed with my CHARTERED FINANCIAL ANALYST. Above care plan developed with my supervision; agree with above. Feels tired this afternoon. Tolerating therapy-hard work. Post op pain doing well-did need a pain medication overnight, but overall has not been using pain medicine frequently. Note nerve pain in leg-a different pain from the surgical pain. Eating well-no nausea or ab pain. Passing flatus, but no stool. Breathing well. Lungs: clear bilaterally CV: regular AB: soft nt/nd +BS MSE: awake alert appropriate GEN: looks tired. Plan: Agree with admission of patient to IRU to maximize her functional status. Encourage PT/OT to build up strength and stability. Will add Neurontin 300mg at night to help decrease her neuropathy. Continue with bowel motivation. Cephalexin for urinary treatment of Ecoli UTI. Monitor blood sugars. Will need intermittent lab monitoring while on IRU to monitor blood counts. Medically stable for IRU floor activities. DVT Prophylaxis: Lovenox Resuscitation Status: Full Code Hospital Course Summary Disclaimer: The visit summary below is not to be considered part of the above Progress Note.
--- NOTE | 2017-07-15 11:52 | XRay Report ---
Indication: left medial ankle pain PROCEDURE: XR ankle LT 2V: Encounter: Initial Comparison: None Findings: There is no acute fracture, dislocation or malalignment identified. Small calcaneal spurs. Arterial vascular calcifications. Impression: No acute osseous abnormality. .
--- NOTE | 2017-07-15 16:16 | Orthopedic Consult Note ---
Orthopedic Consultation HPI - Consultation Info Consult Date: 07/15/17 Attending Physician: Frank Fischer MD - History of Present Illness Yodit is a 67 year old female who is in IRU to recover from a left hip endoprosthesis completed by Dr. Carmichael on 07/13/17. The hospitalist service noted left ankle pain during rounds today and contacted us for further evaluation. Intial X-rays of the left ankle are negative for fracture. Serum uric acid is slightly elevated at 8.3. Yodit has only noticed this pain since her Endoprosthesis surgery. She locates it coursing over the posterior tibialis tendon and peroneal tendons. Pain is worse with ambulation, better when non weight bearing. She did not appreciate any injury. Her pain ascends to the level of the knee, but not above. She has no previous surgical history or injury history to the ankle. She denies any shortness of breath, or chest pain, or true calf swelling. Her hip has been feeling well. Review of Systems - Constitutional Constitutional: Absent: chills, fatigue, headache(s) - EENT Eyes: Absent: loss of vision, pain - Cardiovascular Cardiovascular: Absent: chest pain - Respiratory Respiratory: Absent: cough, wheezing - Gastrointestinal Gastrointestinal: Absent: abdominal pain - Genitourinary Genitourinary General: Absent: anorexia, chills, fever(s) - Musculoskeletal Musculoskeletal: Present: as per HPI, limited range of motion, muscle weakness - Neurological Neurological: Absent: confusion, convulsions, dizziness - Endocrine Endocrine: Absent: heat intolerance - Hematologic/Lymphatic Hematologic/Lymphatic: Absent: easy bleeding - Allergic/Immunologic Allergic/Immunologic: Absent: tongue swelling [facility] Patient Stated Medical History Cerebrovascular Accident Yes Paralysis No Seizures No Syncope No Cataracts Yes Coronary Artery Disease Yes Hypertension Yes Other Cardiology Yes: CABGx4 2009 Asthma No Bronchitis No Chronic Obstructive Pulmonary No Disease (COPD) Pneumonia No Pulmonary Edema No Pulmonary Embolism No Sleep Apnea No Tuberculosis No Other Respiratory No Diabetes Mellitus Type 1 Yes Diabetes Mellitus Type 2 Yes Cirrhosis No Constipation No Gastroesophageal Reflux No Disease Gastrointestinal Bleeding No Hepatitis No Hiatal Hernia No Obstructive Bowel No Ulcer No Other GI No Hx Incontinence No Hx Urinary Tract Infection Yes Other Hematologic Yes: blood transfusion as a child after tonsillectomy Osteoarthritis Yes Other Musculoskeletal No Shingles Yes Anesthesia Reactions Yes: N/V Blood Transfusions Yes: as a child after tonsillectomy Depression No Post Menopausal Yes Clinic Medical History (Last Reviewed 06/10/17 @ 08:29 by Dexter Feldman RMIrene) Hip fracture, intertrochanteric (Acute Medical) Left displaced femoral neck fracture (Acute Medical) DM type 2 (diabetes mellitus, type 2) (Chronic Medical) Benign essential hypertension (Chronic Medical) UTI (urinary tract infection) (Acute Medical) Acute pain of left lower extremity (Acute Medical) Biceps rupture, proximal (Acute Medical) Chronic rupture, long head Cataract (Acute Medical) Diabetes (Acute Medical) High blood pressure (Acute Medical) High cholesterol (Acute Medical) Surgical History: C SECTIONS X 3, GALLBLADDER 2009 , QUAD BYPASS HEART SURGERY 2009,. LT SHOULDER ARTHROSCOPIC DEBRIDEMENT SUPERIOR LABRUM & LONG HEAD BICEPS TENDON STUMP, DEBRIDEMENT SUBSCAPULARIS, SUBACROMIAL BURSECTOMY WITH SAD 05-04-17 Family History: Family History (Last Reviewed 06/10/17 @ 08:29 by Dexter Feldman RMIrene) Mother Dementia High blood pressure High cholesterol Brother High cholesterol High blood pressure Lung cancer Father Heart attack Maternal Grandmother Diabetes - Social History Smoking status: Never smoker Current residence: Apartment/Private Home Medications Home Medications Medication Instructions Recorded Confirmed Type Crestor (rosuvastatin) 40 mg tablet 40 mg PO DAILY 30 Days tab 03/25/17 History Levemir FlexTouch (insulin 35 units SQ DAILY 72 Days #45 03/25/17 07/11/17 History detemir) 100 unit/mL (3 mL) PEN Plavix (clopidogrel) 75 mg tablet 75 mg PO DAILY 30 Days tab 03/25/17 07/12/17 History hydrochlorothiazide 25 mg tablet 25 mg PO DAILY 90 Days tab 03/25/17 07/12/17 History levothyroxine 150 mcg tablet 150 mcg PO DAILY 30 Days tab 03/25/17 07/12/17 History lisinopril 10 mg tablet 10 mg PO DAILY 90 Days tab 03/25/17 07/12/17 History Lasix (Furosemide) 20 mg tablet 20 mg PO QAM 04/08/17 07/12/17 History Norvasc (amlodipine) 5 mg tablet 5 mg PO DAILY 30 Days tab 04/08/17 07/12/17 History aspirin 81 mg tablet,delayed 81 mg PO Q6H 04/08/17 07/11/17 History release Insulin Lispro [Humalog] 4 unit SQ AM 04/13/17 07/11/17 History Insulin Lispro [Humalog] 4 units SQ NOON 04/13/17 07/11/17 History Insulin Lispro [Humalog] 8 unit SQ PM 04/13/17 07/11/17 History Metoprolol Succinate 25 mg PO DAILY 04/13/17 07/12/17 History Allergies Allergy/AdvReac Type Severity Reaction Status Date / Time No Known Allergies Allergy Verified 07/11/17 18:46 Orthopedic Exam Vital signs: Temperature 97.7 F 07/15/17 08:00 Pulse Rate 75 07/15/17 08:00 Respiratory Rate 16 07/15/17 08:00 Blood Pressure 106/58 07/15/17 08:00 Pulse Oximetry 93 07/15/17 08:00 - Constitutional General Appearance: Present: alert, orientated x3 - Respiratory Exam Present: non-labored. Absent: wheezes - Cardiovascular Exam Present: pedal pulses intact Capillary Refill: < 2-3 Seconds Comments: She is tender to palpation over the post tib and peroneal tendons. Non tender over the ATF, Deltoid, and CC ligaments. She has intact AROM in all planes but limited especially with external rotation, internal rotation. Plantar and dorsiflexion are near normal. N/V intact. Non tender calf. Intact sensation to light touch L1-S1. No overt effusion. Ligamentously stable with anterior drawer, talar tilt. - Extremities Exam Present: no edema, pulses intact - Integumentary Exam Present: pink, warm, dry, intact - Lymphatic Lymphatic: Absent: lymphedema - Neurological Exam Present: intact to light touch - Psychiatric Exam Present: alert, oriented, normal affect - Labs Result Diagrams: 07/15/17 05:44 07/15/17 05:44 Abnormal lab results 07/15/17 07/15/17 07/15/17 Range/Units 05:40 05:44 05:44 RBC 3.27 L (4.00-5.20) M/MM3 Hgb 10.0 L (12-16) GM/DL Hct 30.4 L (36-46) % Neut % (Auto) 72.6 H (33-66) % Lymph % (Auto) 18.4 L (23-45) % BUN 59.0 H* (7-17) MG/DL BUN/Creatinine Ratio 54 H (6-26) RATIO Glucose 46 L* (65-110) MG/DL Calculated Osmolality 282 H (261-280) MOSM/KG Uric Acid 8.3 H (2.5-7.5) MG/DL H & H 07/15/17 Range/Units 05:44 Hgb 10.0 L (12-16) GM/DL Hct 30.4 L (36-46) % - Diagnostic results Ankle/Foot x-ray: image reviewed Impression and Recommendation (1) Strain of left ankle Current visit: Yes Qualifiers: Encounter type: initial encounter Qualified Code(s): S96.912A - Strain of unspecified muscle and tendon at ankle and foot level, left foot, initial encounter Status: Acute Primarily looks like a strain. However in view of her trauma and difficulty with mobility further work up is indicated Recommendation 1. Doppler US to rule out DVT in view of recent hip surgery 2. CAM boot while up to unload the ankle/calf 3. MRI 07/16/17 for further evaluation. Hospital Course Summary Disclaimer: The visit summary below is not to be considered part of the above Progress Note. Hospital Course: 07/15/17 Impression Status post left hip hemiararthroplasty Acute left lower extremity-medial lower leg pain UTI- POA Type II diabetes Hypertension Coronary artery disease Plan Agree with admission to the IRU under the care of Dr. Fischer for postoperative strengthening and improve function. Will obtain an x-ray of the left ankle as well as a uric acid for further workup of acute discomfort in the left lower extremity. There is no evidence of acute inflammation, erythema or signs of infection currently. Consult Dr. Carmichael, case discussed with Addie. Question if there is a postoperative neuropathy type discomfort given the description by the patient. She is tender along the femoral nerve dermatome. On her blood sugars carefully given. Patient did have an episode of hypoglycemia. Will decreased evening mealtime insulin to 6 units. Continue to follow routine labs tomorrow for postoperative anemia. Continue Plavix and aspirin as this will cover for postop anticoagulation Continue with Keflex through 07/17 for treatment of Escherichia coli UTI Encourage work with PT/OT for ongoing strengthening Case discussed with attending, Dr Davis At time of discharge medical care will return to primary care provider in [place] , Dr. Miryam Brooks
[2017-07-15] MEDS ORDERED: INSULIN ASPART 100unit/ml INJECTION SQ SCH (17:00)
--- NOTE | 2017-07-15 17:20 | Ultrasound Report ---
Indication: evaluate calf pain PROCEDURE: US venous doppler LE LT: Encounter: Initial Comparison: None Technique: Color Doppler duplex and grayscale sonographic imaging of the left lower extremity was performed. Findings: There is no evidence for acute deep venous thrombosis in the left thigh. Specifically, serial graded compression was performed from the inguinal ligament to the popliteal bifurcation, on the left thigh, demonstrating appropriate compressibility of the deep venous system. In addition, color and pulsed Doppler demonstrate appropriate spontaneous flow, variation with respiration, and augmentation with calf compression. At the ankle, normal flow is identified in the posterior tibial veins; these vessels are also normal in caliber. Impression: No evidence of acute DVT in the left lower limb. .
[2017-07-15] MEDS ORDERED: GABAPENTIN 300 MG CAPSULE PO SCH (21:00)
[2017-07-15] MEDS: ROSUVASTATIN 20 MG TABLET PO SCH (22:08)
[2017-07-15] MEDS: INSULIN DETEMIR 100unit/ml INJECTION SQ SCH (22:09)
[2017-07-16] MEDS: LEVOTHYROXINE 150 MCG TABLET PO SCH ×2 (04:49→06:28)
[2017-07-16] MEDS ORDERED: NS 1,000 ML IV SCH (08:00)
[2017-07-16] MEDS: HYDROCODONE/APAP 7.5 MG/325 MG TABLET PO PRN (08:01)
[2017-07-16] MEDS: ONDANSETRON ODT 4 MG TABLET PO PRN (08:40)
[2017-07-16] MEDS: SENNA + DOCUSATE TABLET PO SCH ×2 (09:18→20:46)
[2017-07-16] MEDS: POLYETHYL GLYCOL 3350 17gm PACKET PO SCH (09:19)
[2017-07-16] MEDS: AMLODIPINE 5 MG TABLET PO SCH (09:19)
[2017-07-16] MEDS: INSULIN ASPART 100unit/ml INJECTION SQ SCH ×3 (09:20→18:14)
[2017-07-16] MEDS: ENOXAPARIN 30 MG/0.3 ML INJECTION SQ SCH ×2 (09:20→20:52)
--- NOTE | 2017-07-16 10:12 | Progress Note ---
- Date 07/16/17 Subjective: Yodit is seen this morning in follow up. She is up in the chair and reports having nausea following PO pain meds. She continues to have some discomfort to the LLE and is using CAM walker. No bowel movements since surgery. Road Conductor this morning increased to 1.3. Will signs stable. Objective Vital signs: Temperature 98.3 F 07/16/17 08:19 Pulse Rate 81 07/16/17 08:19 Respiratory Rate 16 07/16/17 08:19 Blood Pressure 103/55 07/16/17 08:19 Pulse Oximetry 94 07/16/17 08:19 Height/Weight/BMI: Height 1.7 m Weight 92.7 kg Body Mass Index 32.0 - Constitutional Present: no acute distress, well nourished, well developed - Routine HEENT Exam Eye: Present: EOMI ENT: Present: mucous membranes moist, dentition normal - Routine Respiratory Exam Present: CTA bilaterally. Absent: wheezes - Routine Cardiovascular Exam Present: RRR, S1, S2. Absent: murmur - Routine Abdominal Exam Present: soft, normoactive bowel sounds, non distended. Absent: tenderness - Routine Extremities Exam Present: normal capillary refill Comments: CAM boot to LLE - Routine Skin Exam Present: intact, dry, warm - Routine Neurological Exam Present: alert, oriented X3, CN II-XII intact - Routine Lymphatic Exam Lymphatic: Absent: adenopathy - Routine Psychiatric Exam Present: normal affect, cooperative Results - Labs CBC & Chem 7: 07/16/17 04:33 07/16/17 04:33 Assessment and Plan (1) S/P hip hemiarthroplasty Current visit: Yes Status: Acute (2) Acute pain of left lower extremity Current visit: Yes Status: Acute Assessment and Plan: Impression Status post left hip hemiararthroplasty Acute left lower extremity-medial lower leg pain UTI- POA Type II diabetes Coronary artery disease Hypertension Plan Appreciate ortho recommendations. Planning for MRI of Left ankle today. Neurontin was added at HS for possible neuropathy of LLE Lasix placed on hold given increase in Road Conductor. Will given 1 liter of IV NS over 4 hours for hydration. Will recheck labs tomorrow morning Keflex for tx of UTI. Hgb stable at 9.3. Continue to monitor blood sugars Encourage work with PT/OT Hospital Course Summary Disclaimer: The visit summary below is not to be considered part of the above Progress Note. Hospital Course: 07/15/17 Impression Status post left hip hemiararthroplasty Acute left lower extremity-medial lower leg pain UTI- POA Type II diabetes Hypertension Coronary artery disease Plan Agree with admission to the IRU under the care of Dr. Fischer for postoperative strengthening and improve function. Will obtain an x-ray of the left ankle as well as a uric acid for further workup of acute discomfort in the left lower extremity. There is no evidence of acute inflammation, erythema or signs of infection currently. Consult Dr. Carmichael, case discussed with Addie. Question if there is a postoperative neuropathy type discomfort given the description by the patient. She is tender along the femoral nerve dermatome. On her blood sugars carefully given. Patient did have an episode of hypoglycemia. Will decreased evening mealtime insulin to 6 units. Continue to follow routine labs tomorrow for postoperative anemia. Continue Plavix and aspirin as this will cover for postop anticoagulation Continue with Keflex through 07/17 for treatment of Escherichia coli UTI Encourage work with PT/OT for ongoing strengthening Case discussed with attending, Dr Davis At time of discharge medical care will return to primary care provider in [place] Dr. Miryam 07/16/17 Plan Appreciate ortho recommendations. Planning for MRI of Left ankle today. Neurontin was added at HS for possible neuropathy of LLE Lasix placed on hold given increase in Road Conductor. Will given 1 liter of IV NS over 4 hours for hydration. Will recheck labs tomorrow morning Keflex for tx of UTI. Hgb stable at 9.3. Continue to monitor blood sugars Encourage work with PT/OT
[2017-07-16] MEDS: ASPIRIN *EC* 81 MG TABLET PO SCH (10:53)
--- NOTE | 2017-07-16 12:48 | Magnetic Resonance Report ---
Indication: evaluate ankle pain PROCEDURE: MR ankle LT wo con: Encounter: Initial Comparison: Left ankle radiographs dated July 15, 2017 Technique: Multiplanar multisequence MR imaging of the left ankle was performed without contrast. FINDINGS: The Achilles tendon is normal in morphology and signal. Extensor tendons are normal. The posterior tibialis, flexor digitorum, and flexor hallucis longus tendons are normal. The peroneus longus shows areas of increased STIR signal intensity below the lateral malleolus best seen on axial images 10 through 14. And brevis tendons are normal. The deltoid ligament is intact. The anterior talofibular, calcaneofibular, and posterior talofibular ligaments are intact. The plantar fascia is normal. Bone marrow signal is unremarkable. No acute fracture. Small ankle joint effusion with fluid tracking along the tendon sheath of the flexor hallucis longus. There is edema within the intrinsic musculature of the plantar mid foot. IMPRESSION: 1. Partial tearing of the peroneus longus tendon. 2. Midfoot muscular tearing or strain. .
--- NOTE | 2017-07-16 13:23 | IRU Progress Note ---
- Subjective/Serverity of Illness Yodit was evaluated in her room today on the inpatient rehabilitation unit. She complained of severe pain in the left ankle last night. Today she is very groggy and has difficulty staying awake. She states that she does not know why this is. She has been on pain medication since the fracture and this is not related cause this in the past. In reviewing her medications, it is noted that she is now on gabapentin. Her first dose was last night. I discussed this with Rosalba with the hospitalist service and we will plan to discontinue that at least for the time being. With regard to the left ankle, an MRI has been ordered. She denies any chest pain. Denies shortness of breath. She is cooperative with therapy and has made improvement. Update on medical problems which we are actively monitoring and managin. Diabetes mellitus type 2. Her blood sugars are well controlled. She does have intermittent nausea which is being treated with Zofran ODT. 2. Hypertension: Her blood pressures are reviewed and seemed to be stable. She is not hypotensive. 3. History of coronary artery disease. She denies any chest pains. 4. UTI diagnosed on acute: e. Coli, on cephalexin. She is afebrile. Tolerating the cephalexin adequately. Exam Vital Signs: Temperature 98.3 F 07/16/17 08:19 Pulse Rate 81 07/16/17 08:19 Respiratory Rate 16 07/16/17 08:19 Blood Pressure 103/55 07/16/17 08:19 Pulse Oximetry 94 07/16/17 08:19 Height/Weight/BMI: Height 1.7 m Weight 92.7 kg Body Mass Index 32.0 Comments: The patient is quite sleepy and difficult to arouse at times. Sometimes she will fall back to sleep during a conversation. I assessed her this morning and again early this afternoon and she is doing a bit better at present. Pupils are equal. The neck is supple. Chest: Clear to auscultation bilaterally. Cor: RR with no gallop, click nor murmur Abd: soft with normo-active bowel sounds. There are no masses, no tenderness and no guarding. Extremities: No edema is noted. Neurologically she is intact. Has good strength bilaterally in the upper extremities. There is no facial droop and there is no slurred speech. Results IRU - Labs Labs: MRI of ankle reviewed. Shows partial rupture of tendon. IRU A/P (1) Left displaced femoral neck fracture Current visit: No Status: Acute Pain is reasonably well controlled in the hip. However does have pain in the left ankle which may be due to a ruptured tendon from the fall. She does have nausea with use of pain medication but is able to control this with Zofran. (2) DM type 2 (diabetes mellitus, type 2) Qualifiers: Diabetes mellitus complication status: with circulatory complication Diabetes mellitus complication detail: with other circulatory complications Diabetes mellitus custodial insulin use: with petroleum terminal plant operator use Qualified Code(s) : E11.59 - Type 2 diabetes mellitus with other circulatory complications; Z79.4 - marine oil terminal superintendent (current) use of insulin; Z79.4 - snf (current) use of insulin ; Z79.4 - marine oil terminal superintendent (current) use of insulin; Z79.4 - marine oil terminal superintendent (current) use of insulin Current visit: Yes Status: Chronic Her blood sugars are reviewed. She has not been hypoglycemic. Her sugars are well controlled at present. (3) Benign essential hypertension Current visit: Yes Status: Chronic Blood pressures are well controlled. (4) UTI (urinary tract infection) Qualifiers: Urinary tract infection type: acute cystitis Hematuria presence: with hematuria Qualified Code(s): N30.01 - Acute cystitis with hematuria Current visit: Yes Status: Acute (5) Excessive sleepiness Current visit: Yes Status: Acute As of this morning she has been excessively sleepy. She finds it difficult to awaken. She is neurologically intact. She did receive gabapentin for the first time last night. We will discontinue that at present. (6) Peroneal tendon rupture Qualifiers: Encounter type: initial encounter Laterality: left Qualified Code(s): S86.312A - Strain of muscle(s) and tendon(s) of peroneal muscle group at lower leg level, left leg, initial encounter Current visit: Yes Status: Acute MRI demonstrates rupture peroneus longus tendon in the left ankle. DVT Prophylaxis: Lovenox Resuscitation Status: Full Code - Course Hospital Course: Frank Fischer MD: 07/16/17 13:26 She is excessively sleepy today. I have reviewed the medications. Gabapentin is new last night. We will discontinue gabapentin. Right ankle pain noted. MRI demonstrates tendon rupture. - Interventions to Obtain Goals PT Treatment Plan: Balance/Proprioception, Functional Activities, Gait Training , Patient/Family Education, Therapeutic Exercise OT Treatment Plan: ADL (Basic Care), Balance Training, IADL, Pt./Family Education, Ther. Exercise for ADL Goals Progress/Modifications: Time spent with patient and on floor reviewing data and documentin min Barriers to dismissal: Endurance, left ankle pain, sleepiness Medical decision-making: Due to her new onset of sleepiness, we reviewed her medications. She is neurologically intact. Gabapentin was Is night so we will discontinue that (I discussed with Rosalba with the hospitalist service). Otherwise she is making good progress and we will continue working with her. Left ankle pain likely due to the ruptured tendon.
--- NOTE | 2017-07-16 13:33 | IRU Team Meeting ---
IRU Team Meeting - Nursing Vital Signs: Vital Signs - 24 hr 07/15/17 16:00 07/15/17 20:11 07/16/17 08:19 Temperature 97.8 F 98.4 F 98.3 F Pulse Rate 76 85 81 Respiratory Rate 20 18 16 Blood Pressure 103/54 129/72 103/55 Pulse Oximetry 96 92 94 Current Medications: Hydrocodone Bitart/Acetaminophen ([place] 7.5/325) 1 - 2 tab PO Q6H PRN PRN Reason: Pain Last Admin: 07/16/17 08:01 Dose: 1 tab Amlodipine Besylate (Norvasc) 5 mg PO DAILY [facility] Last Admin: 07/16/17 09:19 Dose: Not Given Aspirin (Ecotrin) 81 mg PO QAM [facility] Last Admin: 07/16/17 10:53 Dose: 81 mg Cephalexin HCl (Keflex) 500 mg PO Q12HR [facility] Stop: 07/17/17 09:00 Last Admin: 07/16/17 09:16 Dose: 500 mg Dextrose (D50%W) 25 ml IVP PRN PRN PRN Reason: Hypoglycemia Enoxaparin Sodium (Lovenox) 30 mg SQ BID [facility] Last Admin: 07/16/17 09:20 Dose: 30 mg Furosemide (Lasix) 20 mg PO QAM [facility] Last Admin: 07/15/17 08:35 Dose: 20 mg Glucose (Glutose 15) 37.5 gm PO PRN PRN PRN Reason: Hypoglycemia Insulin Aspart (Novolog) 4 unit SQ NOON [facility] Last Admin: 07/16/17 12:40 Dose: 4 unit Insulin Aspart (Novolog) 4 unit SQ AMI [facility] Last Admin: 07/16/17 09:20 Dose: Not Given Insulin Aspart (Novolog) 6 unit SQ PMI [facility] Last Admin: 07/15/17 18:04 Dose: 6 unit Insulin Detemir (Levemir) 35 unit SQ HS [facility] Last Admin: 07/15/17 22:09 Dose: 35 unit Levothyroxine Sodium (Synthroid) 150 mcg PO ACB [facility] Last Admin: 07/16/17 06:28 Dose: Not Given Magnesium Hydroxide (Mom) 30 ml PO DAILY PRN PRN Reason: Constipation Metoprolol Succinate (Toprol Xl) 25 mg PO DAILY [facility] Last Admin: 07/16/17 09:23 Dose: Not Given Ondansetron HCl (Zofran Po) 4 mg PO Q4H PRN PRN Reason: Nausea &/or vomiting Last Admin: 07/16/17 08:40 Dose: 4 mg Polyethylene Glycol (Miralax) 17 gm PO DAILY [facility] Last Admin: 07/16/17 09:19 Dose: 17 gm Rosuvastatin Calcium (Crestor) 20 mg PO HS [facility] Last Admin: 07/15/17 22:08 Dose: 20 mg Senna/Docusate Sodium (Senna Plus Tablet) 1 tab PO BID [facility] Last Admin: 07/16/17 09:18 Dose: 1 tab Current Medical Issues: Diabetes mellitus, benign essential hypertension, coronary artery disease Comments: I certify that I personally led the interdisciplinary team meeting and agree with comments, barriers and goals indicated. Team meeting was held in the patient's room with the patient and the following family members present: Yodit has been very sleepy today. She received gabapentin for the first time last night. This will be discontinued. In addition, she has evidence of dehydration with elevated BUN and slight elevation of creatinine. She is receiving IV fluids today. She would like to continue with therapy today. Continues to struggle with some nausea apparently temporarily related to pain medication administration. This is fairly well-controlled with the Zofran however. - Physical Therapy Comments: She is doing well with physical therapy. She is contact-guard assistance of 1 person for bed/chair/wheelchair transfer assistance. She is contact-guard assistance for ambulation at 175 feet. She is standby assistance for 6 steps climbed as well as standby assistance for car transfer ability. She is walking with a front-wheeled walker. - Occupational Therapy Comments: Patient requires minimal assistance for upper and lower body dressing. She is standby assistance for grooming. Still requires maximal assistance for toileting. She is contact-guard assistance for toilet transfers. She is using a long handled shoe horn and material flow analyst and sock aid. - Goals Goals: 1. Standby assistance for lower body dressing with assistive devices 2. Perform at modified independent functioning with ambulation 200 feet with a front-wheeled walker 3. Perform 60 minutes of therapy with only one rest break. - Barriers to Discharge Barriers to Attaining Goals: Weakness, Endurance, Other (excessive drowsiness today.) - Care Plan Anticipated DC Destination: Home, Self Care, Alf/Facility I have led this team conference and agree with the plan. Anticipated Length of Stay (days): 3
[2017-07-16] MEDS ORDERED: ONDANSETRON 4 MG/2 ML INJECTION IVP PRN (13:56)
[2017-07-16] MEDS: ROSUVASTATIN 20 MG TABLET PO SCH (20:46)
[2017-07-16] MEDS: INSULIN DETEMIR 100unit/ml INJECTION SQ SCH (20:46)
[2017-07-17] MEDS: LEVOTHYROXINE 150 MCG TABLET PO SCH (06:06)
[2017-07-17] MEDS: INSULIN ASPART 100unit/ml INJECTION SQ SCH ×3 (08:51→17:36)
[2017-07-17] MEDS: ASPIRIN *EC* 81 MG TABLET PO SCH (08:53)
[2017-07-17] MEDS: AMLODIPINE 5 MG TABLET PO SCH (08:53)
[2017-07-17] MEDS: POLYETHYL GLYCOL 3350 17gm PACKET PO SCH (08:54)
[2017-07-17] MEDS: SENNA + DOCUSATE TABLET PO SCH ×2 (08:54→21:07)
[2017-07-17] MEDS: ENOXAPARIN 30 MG/0.3 ML INJECTION SQ SCH (08:54)
[2017-07-17] MEDS: HYDROCODONE/APAP 7.5 MG/325 MG TABLET PO PRN (10:02)
[2017-07-17] MEDS: ONDANSETRON ODT 4 MG TABLET PO PRN (10:04)
--- NOTE | 2017-07-17 12:53 | Progress Note ---
<Melanie Kay D - Last Filed: 07/17/17 12:47> - Date 07/17/17 Subjective: Yodit was seen today in follow up. Reports feeling fairly well. Getting up with staff for lunch. Denies pain or any other acute concerns. Chart is reviewed for collateral information. Objective Vital signs: Temperature 97.8 F 07/17/17 08:00 Pulse Rate 90 07/17/17 08:00 Respiratory Rate 16 07/17/17 08:00 Blood Pressure 103/57 07/17/17 08:00 Pulse Oximetry 96 07/17/17 08:00 Height/Weight/BMI: Height 1.7 m Weight 92.7 kg Body Mass Index 32.0 - Constitutional Present: no acute distress, well nourished, well developed, obese, cooperative - Routine HEENT Exam Head: Present: normocephalic, atraumatic Eye: Present: EOMI, PERRL ENT: Present: mucous membranes moist - Routine Respiratory Exam Present: CTA bilaterally, diminished air movement. Absent: rhonchi, wheezes, crackles - Routine Cardiovascular Exam Present: RRR, S1, S2, no murmur - Routine Abdominal Exam Present: soft, normoactive bowel sounds, non distended, non tender - Routine Extremities Exam Present: no edema - Routine Skin Exam Present: intact, dry, warm - Routine Neurological Exam Present: alert, oriented X3, moving all extremities - Routine Psychiatric Exam Present: normal affect, cooperative Results - Labs CBC & Chem 7: 07/17/17 04:44 07/17/17 04:44 - Impressions MRI IMPRESSION: 1. Partial tearing of the peroneus longus tendon. 2. Midfoot muscular tearing or strain. Assessment and Plan (1) S/P hip hemiarthroplasty Current visit: Yes Status: Acute (2) Acute pain of left lower extremity Current visit: Yes Status: Acute Assessment and Plan: Impression Status post left hip hemiararthroplasty 07/13/17 Acute left lower extremity-medial lower leg pain UTI- POA (E.Coli- Keflex completed 07/17) Type II diabetes Coronary artery disease Hypertension Left ankle tendon injury. Plan 07/17/17 MRI did reveal tendon injury to left foot. Continue Cam Walker. Ortho following. Gabapentin Q HS. Pt does not c/o pain today. Has completed Keflex for UTI. Monitor for return of sx. Continues to appear dry, but BUN/SCr is not proportionate to exam Assess FOB to ensure there is no slow GI blood loss. Repeat labs in AM. Give 1 liter 1/2 NS for hydration. Need to continue ASA, resume Plavix given CAD. Decrease LMWH to daily dosing. BG reviewed- running low. Decrease Levemir from 35 u to 28 u Q HS. BP running a bit low. Decrease Norvasc to 2.5mg. Continue to hold JOSE-HCTZ. Continue to hold Lasix. Follow closely. DVT Prophylaxis: Lovenox Resuscitation Status: Full Code Hospital Course Summary Disclaimer: The visit summary below is not to be considered part of the above Progress Note. Hospital Course: 07/15/17 Impression Status post left hip hemiararthroplasty Acute left lower extremity-medial lower leg pain UTI- POA Type II diabetes Hypertension Coronary artery disease Plan Agree with admission to the IRU under the care of Dr. Fischer for postoperative strengthening and improve function. Will obtain an x-ray of the left ankle as well as a uric acid for further workup of acute discomfort in the left lower extremity. There is no evidence of acute inflammation, erythema or signs of infection currently. Consult Dr. Carmichael, case discussed with Addie. Question if there is a postoperative neuropathy type discomfort given the description by the patient. She is tender along the femoral nerve dermatome. On her blood sugars carefully given. Patient did have an episode of hypoglycemia. Will decreased evening mealtime insulin to 6 units. Continue to follow routine labs tomorrow for postoperative anemia. Continue Plavix and aspirin as this will cover for postop anticoagulation Continue with Keflex through 07/17 for treatment of Escherichia coli UTI Encourage work with PT/OT for ongoing strengthening Case discussed with attending, Dr Davis At time of discharge medical care will return to primary care provider in Dr. Miryam Mclaughlin 07/16/17 Plan Appreciate ortho recommendations. Planning for MRI of Left ankle today. Neurontin was added at HS for possible neuropathy of LLE Lasix placed on hold given increase in [place] Worker. Will given 1 liter of IV NS over 4 hours for hydration. Will recheck labs tomorrow morning Keflex for tx of UTI. Hgb stable at 9.3. Continue to monitor blood sugars Encourage work with PT/OT 07/17/17 13:01 Plan MRI did reveal tendon injury to left foot. Continue Cam Walker. Ortho following. Gabapentin Q HS. Pt does not c/o pain today. Has completed Keflex for UTI. Monitor for return of sx. Continues to appear dry, but BUN/SCr is not proportionate to exam Assess FOB to ensure there is no slow GI blood loss. Repeat labs in AM. Give 1 liter 1/2 NS for hydration. Need to continue ASA, resume Plavix given CAD. Decrease LMWH to daily dosing. BG reviewed- running low. Decrease Levemir from 35 u to 28 u Q HS. BP running a bit low. Decrease Norvasc to 2.5mg. Continue to hold JOSE-HCTZ. Continue to hold Lasix. Follow closely. <Jose Juan Davis D - Last Filed: 07/17/17 15:37> - Date 07/17/17 Objective Vital signs: Temperature 97.8 F 07/17/17 08:00 Pulse Rate 90 07/17/17 08:00 Respiratory Rate 16 07/17/17 08:00 Blood Pressure 103/57 07/17/17 08:00 Pulse Oximetry 96 07/17/17 08:00 Height/Weight/BMI: Height 1.7 m Weight 92.7 kg Body Mass Index 32.0 Results - Labs CBC & Chem 7: 07/17/17 04:44 07/17/17 04:44 Assessment and Plan (1) S/P hip hemiarthroplasty Current visit: Yes Status: Acute (2) Acute pain of left lower extremity Current visit: Yes Status: Acute Assessment and Plan: Impression Status post left hip hemiararthroplasty 07/13/17 Acute left lower extremity-medial lower leg pain UTI- POA (E.Coli- Keflex completed 07/17) Type II diabetes Coronary artery disease Hypertension Left ankle tendon injury. Have independently interviewed and examined pt. Chart reviewed. Case discussed with my FINGERPRINT TECHNICIAN. Care plan developed with my supervision; agree with above. Doing fair. Feels really sleepy and groggy-not wanting oxycodone for pain ( feels is knocking her out too much). Request just to use Tylenol for pain. Nots some nausea due to medication. Did NOT tolerate Neurontin - very somnolent with that medication. Breathing well. Lungs: Clear bilaterally CV: regular AB: soft nt/nd MSE: awake alert GEN: does look tired. Plan: Agree with trying Tylenol for pain-hope to have better success. Did discuss about tramadol if Tylenol not helping enough. IVF being given. Levemir decreased. Encourage therapy. Monitor lab. Medically stable for IRU floor activities. Hospital Course Summary Disclaimer: The visit summary below is not to be considered part of the above Progress Note.
[2017-07-17] MEDS ORDERED: AMLODIPINE 5 MG TABLET PO SCH (12:59)
[2017-07-17] MEDS ORDERED: 1/2 NS 1,000 ML IV SCH (13:00)
[2017-07-17] MEDS ORDERED: INSULIN DETEMIR 100unit/ml INJECTION SQ SCH (13:01)
--- NOTE | 2017-07-17 13:18 | IRU Plan of Care ---
[facility] Overall Plan of Care - Date Date: 07/17/17 - Patient Impairments (1) Left displaced femoral neck fracture Code(s): S72.002A - Fracture of unspecified part of neck of left femur, initial encounter for closed fracture Status: Acute Classification: IRF Tx That Should Address Diagnosis, Diagnosis Requiring Medical Follow Up (2) DM type 2 (diabetes mellitus, type 2) Qualifiers: Diabetes mellitus complication status: with circulatory complication Diabetes mellitus complication detail: with other circulatory complications Diabetes mellitus fpc insulin use: with ferry terminal agent use Qualified Code(s) : E11.59 - Type 2 diabetes mellitus with other circulatory complications; Z79.4 - correction (current) use of insulin; Z79.4 - correction (current) use of insulin ; Z79.4 - terminal makeup operator (current) use of insulin; Z79.4 - correction (current) use of insulin Code(s): E11.9 - Type 2 diabetes mellitus without complications Status: Chronic Classification: Present on IRF Admission, IRF Tx That Should Address Diagnosis, Diagnosis Requiring Medical Follow Up (3) Benign essential hypertension Code(s): I10 - Essential (primary) hypertension Status: Chronic Classification: Present on IRF Admission, IRF Tx That Should Address Diagnosis, Diagnosis Requiring Medical Follow Up (4) UTI (urinary tract infection) Qualifiers: Urinary tract infection type: acute cystitis Hematuria presence: with hematuria Qualified Code(s): N30.01 - Acute cystitis with hematuria Code(s): N39.0 - Urinary tract infection, site not specified Status: Acute Classification: Present on IRF Admission, IRF Tx That Should Address Diagnosis, Diagnosis Requiring Medical Follow Up (5) Excessive sleepiness Code(s): G47.10 - Hypersomnia, unspecified Status: Resolved Classification: Complications Since IRF Admission (6) Peroneal tendon rupture Qualifiers: Encounter type: initial encounter Laterality: left Qualified Code(s): S86.312A - Strain of muscle(s) and tendon(s) of peroneal muscle group at lower leg level, left leg, initial encounter Code(s): S86.319A - Strain of muscle(s) and tendon(s) of peroneal muscle group at lower leg level, unspecified leg, initial encounter Status: Acute Classification: Present on IRF Admission, IRF Tx That Should Address Diagnosis, Diagnosis Requiring Medical Follow Up - Relevant Changes Relevant Changes: No Reviewed: I have reviewed the patient's information and concur with the finding and results of the pre-admission screen. Certification: I certify the patient for rehabilitation. - Medical Prognosis Medical Prognosis: Good Vital Signs: Last Vital Signs Temp 97.8 F 07/17/17 08:00 Pulse 90 07/17/17 08:00 Resp 16 07/17/17 08:00 BP 103/57 07/17/17 08:00 Pulse Ox 96 07/17/17 08:00 - Anticipated Interventions Anticipated Interventions: The patient requires inpatient IRF care for PT, OT, and/or ST for residuals remaining from hip fracture resulting in muscular weakness and strength deficits. ROM Deficit: Left Lower Extremity Strength Deficits: Left Lower Extremity - Current Functional Status Failed Alternative Therapy: Arrived from Acute Care Patient Requires: The patient requires oversight by rehabilitation physician to manage their rehabilitation treatment plan and multidisciplinary approach to care that can only be provided in an IRF and requires a multidisciplinary approach to care, provided by professional PTs, OTs, rehabilitation nurses, and may require STs, dieticians, and RTS. This is not available in lesser levels of care. Physical Therapy Minutes: 90 Occupational Therapy Minutes: 90 Therapy: The patient is to receive therapy at least 5 days a week. - Anticipated LOS/Outcomes Anticipated Functional Outcome: It is anticipated the patient will be able to return to her previous level of ADL functioning at a modified independent or independent level, including ambulatory ability. Anticipated Length of Stay (days): 3 Anticipated DC Destination: Home, Self Care, Senior Living/Facility Home Safety Plan: The patient will be provided with the development of a Home Safety Plan for return to a home or home-like environment and and to ensure safety post discharge. - Plan to Avoid Complications Barriers to Attaining Goals: Endurance, Pain Control Plan to Avoid Complications: The patient cannot receive this care in a lesser intensive setting such as Correction or Outpatient Therapy due to the patient requiring the following : close nursing monitoring of blood sugars, pain management by rehabilitation nurses, intensive multidisciplinary approach with PT and OT to reduce fall risk and reduce risk of readmission .
[2017-07-17] MEDS: ACETAMINOPHEN 500 MG TABLET PO PRN (21:07)
[2017-07-17] MEDS: ROSUVASTATIN 20 MG TABLET PO SCH (21:07)
[2017-07-18] MEDS: LEVOTHYROXINE 150 MCG TABLET PO SCH (05:34)
[2017-07-18] MEDS ORDERED: ENOXAPARIN 30 MG/0.3 ML INJECTION SQ SCH (09:00)
[2017-07-18] MEDS: CLOPIDOGREL 75 MG TABLET PO SCH (09:36)
[2017-07-18] MEDS: INSULIN ASPART 100unit/ml INJECTION SQ SCH ×3 (09:36→17:34)
[2017-07-18] MEDS: ASPIRIN *EC* 81 MG TABLET PO SCH (09:36)
[2017-07-18] MEDS: SENNA + DOCUSATE TABLET PO SCH ×2 (09:36→20:39)
[2017-07-18] MEDS: POLYETHYL GLYCOL 3350 17gm PACKET PO SCH (09:37)
[2017-07-18] MEDS: ACETAMINOPHEN 500 MG TABLET PO PRN ×2 (09:38→20:39)
[2017-07-18] MEDS ORDERED: Bisacodyl EC TAB 5 MG TABLET PO PRN (10:51)
[2017-07-18] MEDS: ENOXAPARIN 40 MG/0.4 ML INJECTION SQ SCH (11:48)
--- NOTE | 2017-07-18 13:19 | Progress Note ---
<Rosalba Smith V - Last Filed: 07/18/17 13:14> - Date 07/18/17 Subjective: Yodit is seen today in follow up this afternoon. She reports that overall she is feeling good and was able to shower herself this morning. Her bowels have not yet moved since surgery however, she is passing flatus. postop pain and tendon pain is controlled on only Tylenol. Is having morning hypoglycemia. Objective Vital signs: Temperature 97.9 F 07/18/17 07:44 Pulse Rate 63 07/18/17 07:44 Respiratory Rate 16 07/18/17 07:44 Blood Pressure 117/54 07/18/17 07:44 Pulse Oximetry 95 07/18/17 07:44 Height/Weight/BMI: Height 1.7 m Weight 92.7 kg Body Mass Index 32.0 - Constitutional Present: no acute distress, well nourished, well developed - Routine HEENT Exam Eye: Present: EOMI ENT: Present: mucous membranes moist, dentition normal - Routine Respiratory Exam Present: CTA bilaterally. Absent: wheezes - Routine Cardiovascular Exam Present: RRR, S1, S2. Absent: murmur - Routine Abdominal Exam Present: soft, normoactive bowel sounds, non distended. Absent: tenderness - Routine Extremities Exam Present: no edema Comments: Cam walker to Left foot - Routine Skin Exam Present: intact, dry, warm - Routine Neurological Exam Present: alert, oriented X3, CN II-XII intact - Routine Lymphatic Exam Lymphatic: Absent: adenopathy - Routine Psychiatric Exam Present: normal affect, cooperative Results - Labs CBC & Chem 7: 07/18/17 04:44 07/18/17 04:44 Assessment and Plan (1) S/P hip hemiarthroplasty Current visit: Yes Status: Acute (2) Acute pain of left lower extremity Current visit: Yes Status: Acute Assessment and Plan: Impression Status post left hip hemiararthroplasty 07/13/17 Acute left lower extremity-medial lower leg pain UTI- POA (E.Coli- Keflex completed 07/17) Type II diabetes Coronary artery disease Hypertension Left ankle tendon injury. Plan Work on aggressive bowel motivations. Recommended Dulcolax suppository today. Continue with other oral agents. Suspect bowel motivation may help Die Stamper improve. Lasix remains on hold. Using only Tylenol for pain control. Monitor blood sugars, Morning hypoglycemia- Decrease Levemir to 26 units at HS Check CBC and BMP tomorrow morning She is hoping for discharge home tomorrow Hospital Course Summary Disclaimer: The visit summary below is not to be considered part of the above Progress Note. Hospital Course: 07/15/17 Impression Status post left hip hemiararthroplasty Acute left lower extremity-medial lower leg pain UTI- POA Type II diabetes Hypertension Coronary artery disease Plan Agree with admission to the IRU under the care of Dr. Fischer for postoperative strengthening and improve function. Will obtain an x-ray of the left ankle as well as a uric acid for further workup of acute discomfort in the left lower extremity. There is no evidence of acute inflammation, erythema or signs of infection currently. Consult Dr. Carmichael, case discussed with Addie. Question if there is a postoperative neuropathy type discomfort given the description by the patient. She is tender along the femoral nerve dermatome. On her blood sugars carefully given. Patient did have an episode of hypoglycemia. Will decreased evening mealtime insulin to 6 units. Continue to follow routine labs tomorrow for postoperative anemia. Continue Plavix and aspirin as this will cover for postop anticoagulation Continue with Keflex through 07/17 for treatment of Escherichia coli UTI Encourage work with PT/OT for ongoing strengthening Case discussed with attending, Dr Davis At time of discharge medical care will return to primary care provider in [place] Dr. Miryam 07/16/17 Plan Appreciate ortho recommendations. Planning for MRI of Left ankle today. Neurontin was added at HS for possible neuropathy of LLE Lasix placed on hold given increase in Die Stamper. Will given 1 liter of IV NS over 4 hours for hydration. Will recheck labs tomorrow morning Keflex for tx of UTI. Hgb stable at 9.3. Continue to monitor blood sugars Encourage work with PT/OT 07/17/17 13:01 Plan MRI did reveal tendon injury to left foot. Continue Cam Walker. Ortho following. Gabapentin Q HS. Pt does not c/o pain today. Has completed Keflex for UTI. Monitor for return of sx. Continues to appear dry, but BUN/SCr is not proportionate to exam Assess FOB to ensure there is no slow GI blood loss. Repeat labs in AM. Give 1 liter 1/2 NS for hydration. Need to continue ASA, resume Plavix given CAD. Decrease LMWH to daily dosing. BG reviewed- running low. Decrease Levemir from 35 u to 28 u Q HS. BP running a bit low. Decrease Norvasc to 2.5mg. Continue to hold JOSE-HCTZ. Continue to hold Lasix. Follow closely. 07/18/17 Plan Work on aggressive bowel motivations. Recommended Dulcolax suppository today. Continue with other oral agents. Suspect bowel motivation may help Die Stamper improve. Lasix remains on hold. Using only Tylenol for pain control. Monitor blood sugars, Morning hypoglycemia- Decrease Levemir to 26 units at HS Check CBC and BMP tomorrow morning She is hoping for discharge home tomorrow <Jose Juan Davis D - Last Filed: 07/18/17 16:05> - Date 07/18/17 Objective Vital signs: Temperature 97.9 F 07/18/17 07:44 Pulse Rate 63 07/18/17 07:44 Respiratory Rate 16 07/18/17 07:44 Blood Pressure 117/54 07/18/17 07:44 Pulse Oximetry 95 07/18/17 07:44 Height/Weight/BMI: Height 1.7 m Weight 97 kg Body Mass Index 32.0 Results - Labs CBC & Chem 7: 07/18/17 04:44 07/18/17 04:44 Assessment and Plan (1) S/P hip hemiarthroplasty Current visit: Yes Status: Acute (2) Acute pain of left lower extremity Current visit: Yes Status: Acute Assessment and Plan: Impression Status post left hip hemiararthroplasty 07/13/17 Acute left lower extremity-medial lower leg pain UTI- POA (E.Coli- Keflex completed 07/17) Type II diabetes Coronary artery disease Hypertension Left ankle tendon injury. Have independently interviewed and examined pt. Chart reviewed. Case discussed with my PRODUCT MGMT DEV MANAGER. Care plan developed with my supervision; agree with above. Improving. Pain well controlled with Tylenol as needed. Not hurting. Feels much more awake, alert, and energetic without the narcotic pain meds. Did pass some stool this afternoon. Breathing well. Home to go home. Lungs: clear CV: regular MSE: awake alert appropriate Plan: Continue with supportive care. Continue to work with bowel function. Levemir decreased as am sugars low. Encourage oral intake. Monitor lab. Resuscitation Status: Full Code Hospital Course Summary Disclaimer: The visit summary below is not to be considered part of the above Progress Note.
[2017-07-18] MEDS ORDERED: INSULIN DETEMIR 100unit/ml INJECTION SQ SCH (13:22)
[2017-07-18] MEDS ORDERED: BISACODYL 10 MG SUPPOSITORY RECTALLY PRN (14:29)
[2017-07-18] MEDS: ROSUVASTATIN 20 MG TABLET PO SCH (20:39)
[2017-07-19] MEDS: ACETAMINOPHEN 500 MG TABLET PO PRN ×2 (02:56→13:10)
[2017-07-19] MEDS: LEVOTHYROXINE 150 MCG TABLET PO SCH (06:40)
[2017-07-19] MEDS: SENNA + DOCUSATE TABLET PO SCH (08:41)
[2017-07-19] MEDS: ASPIRIN *EC* 81 MG TABLET PO SCH (08:41)
[2017-07-19] MEDS: CLOPIDOGREL 75 MG TABLET PO SCH (08:41)
[2017-07-19] MEDS: INSULIN ASPART 100unit/ml INJECTION SQ SCH ×2 (08:42→12:29)
[2017-07-19] MEDS: ENOXAPARIN 40 MG/0.4 ML INJECTION SQ SCH (08:43)
[2017-07-19] MEDS: POLYETHYL GLYCOL 3350 17gm PACKET PO SCH (09:00)
[2017-07-19] MEDS ORDERED: AMLODIPINE 2.5 MG TABLET PO SCH (09:00)
--- NOTE | 2017-07-19 11:58 | IRU Progress Note ---
- Subjective/Serverity of Illness Yodit has had no further spells of excessive sleepiness since stopping the gabapentin. She reports that she is anxious to get home and feels safe in doing this. She has met her goals regarding therapy. Pain is adequately controlled and she does not want any narcotics to go home with. She will use Tylenol she states. Her blood sugars are well controlled. Hemoglobin remained stable although low at around 8.8 g percent. Exam Vital Signs: Temperature 97.7 F 07/19/17 08:59 Pulse Rate 74 07/19/17 08:59 Respiratory Rate 20 07/19/17 08:59 Blood Pressure 117/53 07/19/17 08:59 Pulse Oximetry 99 07/19/17 08:59 Height/Weight/BMI: Height 1.7 m Weight 97 kg Body Mass Index 32.0 Comments: The patient is awake, alert and oriented and in no acute distress. Pupils are equal. The neck is supple. Chest: Clear to auscultation bilaterally. Cor: RR with no gallop, click nor murmur Abd: soft with normo-active bowel sounds. There are no masses, no tenderness and no guarding. Extremities: No edema is noted. There are good pulses in both ankles. No cyanosis is present. IRU A/P (1) Left displaced femoral neck fracture Current visit: No Status: Acute Pain is adequately controlled. She is improving with regard to self-care and appears to be safe to go home today. (2) DM type 2 (diabetes mellitus, type 2) Qualifiers: Diabetes mellitus complication status: with circulatory complication Diabetes mellitus complication detail: with other circulatory complications Diabetes mellitus oysterman insulin use: with oysterman use Qualified Code(s) : E11.59 - Type 2 diabetes mellitus with other circulatory complications; Z79.4 - senior living (current) use of insulin; Z79.4 - senior living (current) use of insulin ; Z79.4 - truck terminal manager (current) use of insulin; Z79.4 - truck terminal manager (current) use of insulin Current visit: Yes Status: Chronic Her blood sugars are well controlled. (3) Benign essential hypertension Current visit: Yes Status: Chronic (4) UTI (urinary tract infection) Qualifiers: Urinary tract infection type: acute cystitis Hematuria presence: with hematuria Qualified Code(s): N30.01 - Acute cystitis with hematuria Current visit: Yes Status: Acute (5) Excessive sleepiness Current visit: Yes Status: Resolved (6) Peroneal tendon rupture Qualifiers: Encounter type: initial encounter Laterality: left Qualified Code(s): S86.312A - Strain of muscle(s) and tendon(s) of peroneal muscle group at lower leg level, left leg, initial encounter Current visit: Yes Status: Acute DVT Prophylaxis: Lovenox Resuscitation Status: Full Code - Course Hospital Course: Frank Fischer MD: 07/16/17 13:26 She is excessively sleepy today. I have reviewed the medications. Gabapentin is new last night. We will discontinue gabapentin. Right ankle pain noted. MRI demonstrates tendon rupture. 07/19/17 11:58 She is doing well. She has had no further episodes of excessive sleepiness. She would like to go home today and I think that's appropriate. - Interventions to Obtain Goals PT Treatment Plan: Balance/Proprioception, Functional Activities, Gait Training , Patient/Family Education, Therapeutic Exercise OT Treatment Plan: ADL (Basic Care), Balance Training, IADL, Pt./Family Education, Ther. Exercise for ADL
--- NOTE | 2017-07-19 13:10 | Progress Note ---
<Keesha Anglin - Last Filed: 07/19/17 13:05> - Date 07/19/17 Subjective: Pt seen in her room during therapy. She reports she is going home today. She feels safe to go home at this point. She has no CP, SOA or uncontrolled pain. No concerns are voiced. Objective Vital signs: Temperature 97.7 F 07/19/17 08:59 Pulse Rate 74 07/19/17 08:59 Respiratory Rate 20 07/19/17 08:59 Blood Pressure 117/53 07/19/17 08:59 Pulse Oximetry 99 07/19/17 08:59 Height/Weight/BMI: Height 1.7 m Weight 97 kg Body Mass Index 32.0 - Constitutional Present: no acute distress, well nourished, well developed - Routine Respiratory Exam Present: CTA bilaterally. Absent: wheezes - Routine Cardiovascular Exam Present: RRR, S1, S2. Absent: murmur - Routine Abdominal Exam Present: soft, normoactive bowel sounds, non distended. Absent: tenderness - Routine Extremities Exam Present: no edema, normal capillary refill Comments: camwalker on LLE - Routine Skin Exam Present: dry, warm - Routine Neurological Exam Present: alert, oriented X3 - Routine Lymphatic Exam Lymphatic: Absent: adenopathy - Routine Psychiatric Exam Present: normal affect, cooperative Results - Labs CBC & Chem 7: 07/19/17 04:35 07/19/17 04:35 Assessment and Plan (1) S/P hip hemiarthroplasty Current visit: Yes Status: Acute (2) Acute pain of left lower extremity Current visit: Yes Status: Acute Assessment and Plan: Impression Status post left hip hemiararthroplasty 07/13/17 Acute left lower extremity-medial lower leg pain UTI- POA (E.Coli- Keflex completed 07/17) Type II diabetes Coronary artery disease Hypertension Plan She will need to continue Lovenox qd for 30 days post surgery per ortho team. Continue to hold Lasix and JOSE/HCTZ given kidney function and recent hypotension. Monitor renal function and hemoglobin. Recommend repeat BMP and CBC on Thur or Fri of this week and f-u with PCP within a week. Hospital Course Summary Disclaimer: The visit summary below is not to be considered part of the above Progress Note. Hospital Course: 07/15/17 Impression Status post left hip hemiararthroplasty Acute left lower extremity-medial lower leg pain UTI- POA Type II diabetes Hypertension Coronary artery disease Plan Agree with admission to the IRU under the care of Dr. Fischer for postoperative strengthening and improve function. Will obtain an x-ray of the left ankle as well as a uric acid for further workup of acute discomfort in the left lower extremity. There is no evidence of acute inflammation, erythema or signs of infection currently. Consult Dr. Carmichael, case discussed with Addie. Question if there is a postoperative neuropathy type discomfort given the description by the patient. She is tender along the femoral nerve dermatome. On her blood sugars carefully given. Patient did have an episode of hypoglycemia. Will decreased evening mealtime insulin to 6 units. Continue to follow routine labs tomorrow for postoperative anemia. Continue Plavix and aspirin as this will cover for postop anticoagulation Continue with Keflex through 07/17 for treatment of Escherichia coli UTI Encourage work with PT/OT for ongoing strengthening Case discussed with attending, Dr Davis At time of discharge medical care will return to primary care provider in [place] Dr. Miryam 07/16/17 Plan Appreciate ortho recommendations. Planning for MRI of Left ankle today. Neurontin was added at HS for possible neuropathy of LLE Lasix placed on hold given increase in Snow Maker. Will given 1 liter of IV NS over 4 hours for hydration. Will recheck labs tomorrow morning Keflex for tx of UTI. Hgb stable at 9.3. Continue to monitor blood sugars Encourage work with PT/OT 07/17/17 13:01 Plan MRI did reveal tendon injury to left foot. Continue Cam Walker. Ortho following. Gabapentin Q HS. Pt does not c/o pain today. Has completed Keflex for UTI. Monitor for return of sx. Continues to appear dry, but BUN/SCr is not proportionate to exam Assess FOB to ensure there is no slow GI blood loss. Repeat labs in AM. Give 1 liter 1/2 NS for hydration. Need to continue ASA, resume Plavix given CAD. Decrease LMWH to daily dosing. BG reviewed- running low. Decrease Levemir from 35 u to 28 u Q HS. BP running a bit low. Decrease Norvasc to 2.5mg. Continue to hold JOSE-HCTZ. Continue to hold Lasix. Follow closely. 07/18/17 Plan Work on aggressive bowel motivations. Recommended Dulcolax suppository today. Continue with other oral agents. Suspect bowel motivation may help Snow Maker improve. Lasix remains on hold. Using only Tylenol for pain control. Monitor blood sugars, Morning hypoglycemia- Decrease Levemir to 26 units at HS Check CBC and BMP tomorrow morning She is hoping for discharge home tomorrow 07/19/17 She will need to continue Lovenox qd for 30 days post surgery per ortho team. Continue to hold Lasix and JOSE/HCTZ given kidney function and recent hypotension. Monitor renal function and hemoglobin. Recommend repeat BMP and CBC on or Wed of this week and f-u with PCP within a week. <Jose Juan Davis D - Last Filed: 07/19/17 14:27> - Date 07/19/17 Objective Vital signs: Temperature 97.7 F 07/19/17 08:59 Pulse Rate 74 07/19/17 08:59 Respiratory Rate 20 07/19/17 08:59 Blood Pressure 117/53 07/19/17 08:59 Pulse Oximetry 99 07/19/17 08:59 Height/Weight/BMI: Height 1.7 m Weight 97 kg Body Mass Index 32.0 Results - Labs CBC & Chem 7: 07/19/17 04:35 07/19/17 04:35 Assessment and Plan (1) S/P hip hemiarthroplasty Current visit: Yes Status: Acute (2) Acute pain of left lower extremity Current visit: Yes Status: Acute Assessment and Plan: Impression Status post left hip hemiararthroplasty 07/13/17 Acute left lower extremity-medial lower leg pain Left ankle tendon injury UTI- POA (E.Coli- Keflex completed 07/17) Type II diabetes Coronary artery disease Hypertension Constipation Have independently interviewed and examined pt. Chart reviewed. Case discussed with my PA. Above care plan developed with my supervision; agree with above. Doing well overall. Pain controlled sufficiently with Tylenol. Progressing with therapy. Feels ready for home. Breathing well. Eating well. Stools still slow ( had bowel movement yesterday). Urinating without problems. Lungs: clear bilaterally CV: regular MSE: awake alert appropriate Plan: Medically stable for discharge to home. Encourage continued activities as instructed by PT/OT. Encourage patient to continue to work on bowel function. Would hold JOSE/HCTZ and Lasix - recommend recheck lab and restart by PCP. Very encouraged about patient's good improvements. Hospital Course Summary Disclaimer: The visit summary below is not to be considered part of the above Progress Note.
--- NOTE | 2017-07-19 14:46 | Discharge Summary ---
Discharge Information Date of admission: 07/14/17 16:45 Anticipated date of discharge: 07/19/17 Attending Physician: Frank Fischer MD Primary care physician: Miryam Brooks MD Consults: 07/14/17 17:28 Physician Consult [CONS] Routine Consulting Provider: Erwin Santa Reason For Exam: Metabolic Bone Disease Ordering Provider has Notified Central Sterilization Technician: No 07/14/17 19:15 Physician Consult [CONS] Routine Consulting Provider: Yazmin Parada Reason For Exam: medical management Ordering Provider has Notified Central Sterilization Technician: No 07/14/17 21:47 Dietary Consult [CONS] Routine Comment: Reason For Exam: Diabetes mellitus 07/15/17 11:34 Physician Consult [CONS] Routine Consulting Provider: Mars Carmichael Reason For Exam: left medial ankle/lower leg pain. ? Nerve Ordering Provider has Notified Central Sterilization Technician: Yes Comment: spoke with Inocente- PA - Discharge Diagnosis (1) Left displaced femoral neck fracture Status: Acute (2) DM type 2 (diabetes mellitus, type 2) Status: Chronic (3) Benign essential hypertension Status: Chronic (4) UTI (urinary tract infection) Status: Acute (5) Excessive sleepiness Status: Resolved (6) Peroneal tendon rupture Status: Acute 1. Left displaced femoral neck fracture 2. Perineal tendon rupture 3. Diabetes mellitus type 2 on long-term insulin therapy, controlled 4. Benign essential hypertension 5. Acute blood loss anemia 6. Acute kidney injury 7. Atherosclerotic heart disease - Laboratory Labs: 07/19/17 04:35 07/19/17 04:35 History of Present Illness HPI: Yodit is a pleasant 67yr old female who is known to the hospitalist services for recent admission on 07/11/17 following a fall resulting in a left displaced femoral neck fracture. On . GEO patient underwent a left hip hemarthrosis plasty under the care of Dr. Carmichael. She tolerated this procedure well. This operatively she was screened and accepted to the inpatient rehabilitation unit on [facility] for ongoing therapy and postoperative strengthening. Hospital services were consulted for medical management of her existing comorbidities including type II diabetes, hypertension and coronary artery disease. Upon initial acute admission, she was found to have a urinary tract infection with presence of Escherichia coli. She was started on Keflex on 07/12/17. Cesar is seen this morning for initial medical consultation. She is alert and resting in bed with family at the bedside. She complains of being quite fatigued as she has already worked with therapy this morning. She does report having a new type of discomfort overnights to the left medial aspect of the lower leg. She complains of feeling a burning sensation to the medial left ankle that radiates up to the medial aspect just below her knee. With even light touch of the skin. Upon examination she has significant discomfort. There is no evidence of erythema, swelling or injury on exam. Patient does have good range of motion to the left ankle. Morning laboratory studies are reviewed, hemoglobin this morning 10.0. Electro-lites are normal, BUN is elevated at 59 and creatinine of 1.1. Was reported on morning labs. Patient was hypoglycemic with a sugar of 46. 07/19/17 14:44 Yodit is a 67-year-old female followed by Dr. Brooks in [facility]. She fell on 07/11/2017 while she was trying to step on a small puppy's leash when the puppy ran away. She sustained a fracture to her left hip and was admitted to [facility]. She was taken to surgery by Dr. Carmichael on 07/13/2017 for a left hip arthroplasty. Postoperatively she did have some nausea with pain medication administration. She does have history of diabetes mellitus on chronic insulin therapy as well as history of coronary artery disease and hypertension. She was transferred to the acute inpatient rehabilitation unit for an interdisciplinary approach for intensive physical therapy and occupational therapy along with medical management of these several medical conditions. Hospital Course This is a general summary of the patient's hospital course. For more details refer to the complete medical record. While on the acute inpatient rehabilitation unit, she did require an interdisciplinary approach for her physical therapy and occupational therapy as well as medical management. Her blood sugars were monitored carefully. The hospitalist service was involved in the patient's medical care. Her insulin requirements decreased and her Levemir was reduced from around 32 units nightly to 26 units. Her mealtime insulin was likewise decreased slightly. She did have some borderline hypotension with blood pressures in the low 100s. For this reason amlodipine was reduced from 5 mg daily to 2.5 mg daily. Lisinopril was discontinued. The patient did have acute blood loss anemia secondary to the fracture. Hemoglobin is stable although reduced at 8.8 g percent at the time of dismissal. She was hemodynamically stable otherwise. The patient was seen by occupational therapy. She was independent with eating at the beginning of therapy and at the conclusion of therapy. She was standby assist for grooming initially and modified independent subsequently. For bathing she was initially minimal assistance and subsequently standby assistance. Upper body dressing initially with standby assistance and ultimately independent functioning. Lower body dressing was minimal assistance initially and modified independent subsequently. Toileting assistance was initially standby assistance and ultimately modified independent. Toilet transfer assistance was initially standby assistance and ultimately modified independent. She initially was standby assistance for bed/chair/wheelchair transfers and ultimately modified independent functioning. She was seen by physical therapy. She was standby assistance for bed/chair/ wheelchair transfers at the beginning and at the conclusion of therapy. Her ambulatory distance improved from 126 feet up to 264 feet. She was standby assistance for this. She was able to climb 6 stairs initially at contact-guard assistance level and ultimately was able to climb 12 steps at standby assistance level. Cardiac transfers were standby assistance. The patient complained of some left ankle pain as well. She was given gabapentin because of this. This did result in significant sleepiness the next day so this was discontinued. MRI of the ankle was performed demonstrating partial tear of the paranasal longus tendon in the left ankle. Dr. Carmichael recommended a cam boot. At the time of dismissal she is stable. She is eating and drinking adequately. Most recent hemoglobin is 8.8. Most recent creatinine is 1.3 with BUN around 69. Arrangements were made for a follow-up BMP and CBC with differential to be obtained in about 1 week in [facility] with results to Dr. Brooks. The patient will undergo outpatient physical therapy and occupational therapy at [facility]. She will also continue Lovenox for another 3 weeks to concluded total of 4 weeks since the surgery on July 13. Hospital course: 07/15/17 Impression Status post left hip hemiararthroplasty Acute left lower extremity-medial lower leg pain UTI- POA Type II diabetes Hypertension Coronary artery disease Plan Agree with admission to the IRU under the care of Dr. Fischer for postoperative strengthening and improve function. Will obtain an x-ray of the left ankle as well as a uric acid for further workup of acute discomfort in the left lower extremity. There is no evidence of acute inflammation, erythema or signs of infection currently. Consult Dr. Carmichael, case discussed with Addie. Question if there is a postoperative neuropathy type discomfort given the description by the patient. She is tender along the femoral nerve dermatome. On her blood sugars carefully given. Patient did have an episode of hypoglycemia. Will decreased evening mealtime insulin to 6 units. Continue to follow routine labs tomorrow for postoperative anemia. Continue Plavix and aspirin as this will cover for postop anticoagulation Continue with Keflex through 07/17 for treatment of Escherichia coli UTI Encourage work with PT/OT for ongoing strengthening Case discussed with attending, Dr Davis At time of discharge medical care will return to primary care provider in Dr. Miryam Mclaughlin 07/16/17 Plan Appreciate ortho recommendations. Planning for MRI of Left ankle today. Neurontin was added at HS for possible neuropathy of LLE Lasix placed on hold given increase in [employer]. Will given 1 liter of IV NS over 4 hours for hydration. Will recheck labs tomorrow morning Keflex for tx of UTI. Hgb stable at 9.3. Continue to monitor blood sugars Encourage work with PT/OT 07/17/17 13:01 Plan MRI did reveal tendon injury to left foot. Continue Cam Walker. Ortho following. Gabapentin Q HS. Pt does not c/o pain today. Has completed Keflex for UTI. Monitor for return of sx. Continues to appear dry, but BUN/SCr is not proportionate to exam Assess FOB to ensure there is no slow GI blood loss. Repeat labs in AM. Give 1 liter 1/2 NS for hydration. Need to continue ASA, resume Plavix given CAD. Decrease LMWH to daily dosing. BG reviewed- running low. Decrease Levemir from 35 u to 28 u Q HS. BP running a bit low. Decrease Norvasc to 2.5mg. Continue to hold JOSE-HCTZ. Continue to hold Lasix. Follow closely. 07/18/17 Plan Work on aggressive bowel motivations. Recommended Dulcolax suppository today. Continue with other oral agents. Suspect bowel motivation may help [employer] improve. Lasix remains on hold. Using only Tylenol for pain control. Monitor blood sugars, Morning hypoglycemia- Decrease Levemir to 26 units at HS Check CBC and BMP tomorrow morning She is hoping for discharge home tomorrow 07/19/17 She will need to continue Lovenox qd for 30 days post surgery per ortho team. Continue to hold Lasix and JOSE/HCTZ given kidney function and recent hypotension. Monitor renal function and hemoglobin. Recommend repeat BMP and CBC on or Wed of this week and f-u with PCP within a week. Time spent with patient: 25 - 35 minutes Discharge Plan - Med Rec/Dispo Referrals/Follow Up: Miryam Brooks MD [Family Provider] - (Dr. Luli Brooks on 07/28/17 at 10:30 am for Hosp. follow-up. [address] [address]) Jamie Santana PA [Physician Screw Machine Operator] - (LUIS DANIEL Melgoza on 08/02/17 at 10:00 am for Post-Op follow-up. [address] [place] [address]) Prescriptions: New Bisacodyl EC TAB [Dulcolax] 10 mg PO BID PRN tablet PRN Reason: Constipation Bisacodyl Supp [Dulcolax] 10 mg RECTALLY BID PRN supp PRN Reason: Constipation Enoxaparin Sodium [Lovenox] 40 mg SQ DAILY #21 syringe Insulin Aspart [NovoLOG] 6 unit SQ PMI vial PEG 3350 17gm PACKET [Miralax] 17 gm PO DAILY packet Senna + Docusate [Senna Plus Tablet] 1 tab PO BID tablet Acetaminophen [Tylenol] 500 mg PO Q4H PRN tablet PRN Reason: Discomfort Amlodipine [Norvasc] 2.5 mg PO DAILY tablet Insulin Detemir [Levemir] 26 unit SQ HS vial Milk of Magnesia [Mom] 30 ml PO DAILY PRN udc PRN Reason: Constipation Continue Metoprolol Succinate 25 mg PO DAILY Insulin Lispro [Humalog] 4 unit SQ AM Insulin Lispro [Humalog] 4 units SQ NOON levothyroxine 150 mcg tablet 150 mcg PO DAILY 30 Days tab Plavix (clopidogrel) 75 mg tablet 75 mg PO DAILY 30 Days tab aspirin 81 mg tablet,delayed release 81 mg PO Q6H Lasix (Furosemide) 20 mg tablet 20 mg PO QAM Crestor (rosuvastatin) 40 mg tablet 40 mg PO DAILY 30 Days tab Discontinued Insulin Lispro [Humalog] 8 unit SQ PM PEG 3350 17gm PACKET [Miralax] 17 gm PO DAILY packet Senna + Docusate [Senna Plus Tablet] 1 tab PO BID tablet CephALEXin [Keflex] 500 mg PO Q12HR capsule Hydrocodone/APAP 7.5/325 [[place] 7.5/325] 1 - 2 tab PO Q6H PRN tablet PRN Reason: Pain hydrochlorothiazide 25 mg tablet 25 mg PO DAILY 90 Days tab lisinopril 10 mg tablet 10 mg PO DAILY 90 Days tab Levemir FlexTouch (insulin detemir) 100 unit/mL (3 mL) PEN 35 units SQ DAILY 72 Days #45 Norvasc (amlodipine) 5 mg tablet 5 mg PO DAILY 30 Days tab - Disposition 01 Discharged Home, Self-Care - Dismissal Complete Discharge Instructions are:: Complete
[2017-07-19 16:30] VITALS: BP 106/50; PULSE 67; RESP 16; TEMP 98.4; O2SAT 96
== END 2017-07-19 16:00 | disposition home or self-care (01) | DRG 560 ==
PROVIDERS: ADMIT Internal Medicine; ATTEND Internal Medicine